=== PATIENT | male | born 1955 | race Caucasian/White ===

== ENCOUNTER 2016-07-07 15:12 | Inpatient (IN) ==
--- NOTE | 2016-07-07 16:53 | XRay Report ---
HISTORY: Reason for Exam:cough FINDINGS: There is small amount respiration motion artifact seen along the diaphragms. The lungs are clear and well expanded. The heart size, pulmonary vascular and pleura are normal. Postoperative changes are present following prior fusion in the upper thoracic spine. There has been no significant change since 06/15/16. IMPRESSION: Normal chest. Interpreted and Authenticated by: Andrew Good 07/07/16
[2016-07-07 17:09] LABS: Basophils # (Auto) 0 K/mcL (0.0-0.3); Basophils % (Auto) 0.2 % (0.0-2.0); Eosinophils # (Auto) 0.5 K/mcL (0.0-0.7); Eosinophils % (Auto) 3.9 % (0.0-7.0); Granulocytes % (Auto) 71.9 % (38.0-78.0); Lymphocytes # (Auto) 2.7 K/mcL (1.5-4.8); Lymphocytes % (Auto) 19.4 % (15.5-49.0); Mean Cell Volume 98.6 fL (80.0-100.0); Mean Corpuscular HGB Conc 32.8 g/dL (31.0-36.0); Mean Corpuscular Hemoglobin 32.3 pg (26.0-34.0); Monocytes # (Auto) 0.6 K/mcL (0.1-0.9); Monocytes % (Auto) 4.6 % (1.0-9.0); Platelet Count 475 K/mcL (140-440); Red Cell Distribution Width 15.4 % (11.5-14.5)
[2016-07-07 17:38] LABS: ALT/SGPT 26 U/l (0-40); Albumin 3.2 gm/dL (3.2-5.2); Albumin/Globulin Ratio 0.8 (1.0-2.3); Alkaline Phosphatase 116 U/L (39-117); Blood Urea Nitrogen 12 mg/dl (8-23)
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
[2016-07-07] MEDS ORDERED: MAGNESIUM HYDROXIDE 30 ML ORAL.SUSP PO PRN ×2 (19:25→20:25)
[2016-07-07] MEDS ORDERED: ONDANSETRON 4 MG/2 ML VIAL IV PRN (19:25)
[2016-07-07] MEDS ORDERED: ALBUTEROL SULFATE 2.5 MG/3 ML NEBULIZER NEB PRN ×2 (19:25→20:25)
[2016-07-07] MEDS ORDERED: IMIPENEM/CILASTATIN SODIUM 1,000 MG in 0.9 % SODIUM CHLORIDE 250 ML IV SCH (19:45)
[2016-07-07] MEDS ORDERED: VANCOMYCIN PER PHARMACY IV ONE ×2 (19:58→20:25)
[2016-07-07] MEDS ORDERED: DEXTROSE 50% 50 ML VIAL IV PRN ×2 (19:59→20:25)
[2016-07-07] MEDS ORDERED: WARFARIN 3 MG TABLET PO SCH (20:00)
[2016-07-07] MEDS ORDERED: FLUTICASONE/SALMETEROL 250/50 INHALER #14 INH SCH (20:00)
[2016-07-07] MEDS ORDERED: oxyCODONE HCL 5 MG TABLET PO PRN (20:15)
[2016-07-07] MEDS: INSULIN LISPRO 1 UNIT/0.01 ML UNIT SQ SCH (20:55)
[2016-07-07] MEDS ORDERED: oxyCODONE 20 MG TAB.ER.12H PO SCH (21:00)
[2016-07-07] MEDS ORDERED: GABAPENTIN 400 MG CAPSULE PO SCH (21:00)
[2016-07-07] MEDS ORDERED: IPRATROPIUM/ALBUTEROL 3 ML AMPUL.NEB NEB SCH (21:00)
[2016-07-07] MEDS ORDERED: INSULIN LISPRO 1 UNIT/0.01 ML UNIT SQ SCH (21:00)
[2016-07-07] MEDS: oxyCODONE 20 MG TAB.ER.12H PO SCH (21:04)
[2016-07-07] MEDS: GABAPENTIN 400 MG CAPSULE PO SCH (21:04)
[2016-07-07] MEDS: IPRATROPIUM/ALBUTEROL 3 ML AMPUL.NEB NEB SCH (21:13)
[2016-07-07] MEDS: oxyCODONE HCL 5 MG TABLET PO PRN (21:23)
[2016-07-07] MEDS: VANCOMYCIN 500 MG VIAL ONE ×2 (21:23→21:25)
[2016-07-07] MEDS: VANCOMYCIN 1,500 MG in 0.9 % SODIUM CHLORIDE 500 ML IV SCH (21:24)
[2016-07-07] MEDS ORDERED: 0.9 % SODIUM CHLORIDE 10 ML SYRINGE IV SCH (22:00)
[2016-07-07] MEDS ORDERED: IMIPENEM/CILASTATIN SODIUM 500 MG VIAL IV ONE (23:00)
[2016-07-07] MEDS: IMIPENEM/CILASTATIN SODIUM 1,000 MG in 0.9 % SODIUM CHLORIDE 250 ML IV SCH (23:29)
[2016-07-07] MEDS: 0.9 % SODIUM CHLORIDE 10 ML SYRINGE IV SCH (23:30)
[2016-07-08] MEDS: 0.9 % SODIUM CHLORIDE 10 ML SYRINGE IV SCH ×4 (05:21→21:08)
[2016-07-08 06:25] LABS: Mean Cell Volume 99.6 fL (80.0-100.0); Mean Corpuscular HGB Conc 32.5 g/dL (31.0-36.0); Mean Corpuscular Hemoglobin 32.4 pg (26.0-34.0); Platelet Count 436 K/mcL (140-440); RBC 4.19 M/mcL (4.50-5.90); Red Cell Distribution Width 15.2 % (11.5-14.5)
--- NOTE | 2016-07-08 07:19 | General Surgery Progress Note ---
Surgical - Auxillary Note - Subjective Patient Information: Note initiated : 07/08/16 at 7:18 am Service Date, if different from initiated Date: [] Patient: Jesus Amezquita 60 y/o M admitted on 07/07/16 for sacral wound. Chief Complaint: Patient without complaints this morning. Antibiotics started last night with imipenem and vancomycin to cover postitive wound culture from 06/15/16 growing multiple organisms. Vital Signs Temp Pulse Resp BP Pulse Ox 98.0 F 56 L 12 105/63 95 07/08/16 06:53 07/08/16 06:53 07/08/16 06:53 07/08/16 06:53 07/08/16 06:53 Period Temp Pulse Resp BP Sys/Graham Pulse Ox Last 24 Hr 97.2 F-98.1 F 50-60 12-20 90-144/51-77 94-98 Intake and Output 07/07/16 07/08/16 07/08/16 21:59 05:59 13:59 Intake Total 90 / 90 800 / 800 Output Total 750 / 750 Balance 90 / 90 50 / 50 Weight 250 lb 8 oz PE: General appearance: No distress. Alert and oriented and cooperative. CV: slightly irregular. : sacral wound without odor this morning. Unchanged since post debridement last night with mostly healthy appearing tissue in wound bed. Medially area of moncada coloring at site of use of silver nitrate stick last night. No fluctuance of surrounding tissues. CBC and Chem 7 07/08/16 05:19 A/P: Sacral pressure ulcer, Stage 3: recently worsening. S/P debridement of necrotic tissue last night. Dressing changes started this morning with silver alginate dressing to wound bed which will offer topical antimicrobial coverage and help manage drainage from the wound as reported by the patient's on admission. Will monitor wound for need for further debridement. Recommend holding coumadin in case deeper debridement is needed. Sacral Wound infection: On IV antibiotics for positive wound cultures from that were never treated.
[2016-07-08 07:20] LABS: ALT/SGPT 22 U/l (0-40); Albumin 2.9 gm/dL (3.2-5.2); Alkaline Phosphatase 96 U/L (39-117); Bilirubin,Direct < 0.2 mg/dL (0.0-0.3); Blood Urea Nitrogen 11 mg/dl (8-23); Gamma Glutamyl Transpeptidase 48 U/L (8-61); Magnesium 1.8 mg/dL (1.6-2.5); Phosphorous 2.9 mg/dL (2.7-4.5); Uric Acid 8.2 mg/dL (2.5-8.0)
[2016-07-08] MEDS: POTASSIUM CHLORIDE 20 MEQ TABLET PO SCH (07:24)
[2016-07-08] MEDS: AMIODARONE HCL 200 MG TABLET PO SCH (07:24)
[2016-07-08] MEDS: FUROSEMIDE 40 MG TABLET PO SCH ×2 (07:25→16:04)
[2016-07-08] MEDS: INSULIN LISPRO 1 UNIT/0.01 ML UNIT SQ SCH ×3 (07:29→17:16)
[2016-07-08] MEDS: IMIPENEM/CILASTATIN SODIUM 1,000 MG in 0.9 % SODIUM CHLORIDE 250 ML IV SCH ×3 (07:32→23:17)
[2016-07-08] MEDS ORDERED: POTASSIUM CHLORIDE 20 MEQ TABLET PO SCH (08:00)
[2016-07-08] MEDS ORDERED: FUROSEMIDE 40 MG TABLET PO SCH (08:00)
[2016-07-08] MEDS ORDERED: AMIODARONE HCL 200 MG TABLET PO SCH (08:00)
--- NOTE | 2016-07-08 08:18 | Consultation ---
DATE OF CONSULTATION: 07/07/2016 CHIEF COMPLAINT: Sacral pressure sore. HISTORY OF PRESENT ILLNESS: The patient is seen in consultation at the request of Dr. Morley in the emergency department for a sacral pressure sore. Dr. Morley contacted me stating that the patient was sent over by his wound care doctor, and was told to be admitted for colostomy. I had not received any phone calls regarding this plan for this patient. When patient reached the ER, I was consulted for surgical consult for consideration of colostomy. The patient is known to me from previous evaluation for sacral wound in Wound care. The patient reports that his wound has worsened over the past couple of months and that on a recent wound culture he was told that he had E. coli and was told by his wound care physician that he would no longer care for him if he did not get a colostomy to divert the fecal stream. Of note, the patient has not had any issue with management of his bowel movements in the past and denies any problems with diarrhea. The patient is a paraplegic and is cared for by his . When questioned about the current treatment she states that the current wound care involves use of bacitracin ointment and Xeroform gauze and presents orders that show that this is the dressing that is being done daily. She does report that there has been drainage from the wound. The patient denies fevers or chills. PAST MEDICAL HISTORY: 1. Significant for paraplegia. 2. History of splenectomy. 3. Restless leg syndrome. 4. BPH. 5. History of DVT on Coumadin therapy. 6. Type 2 diabetes. 7. Hypertension. 8. Hypercholesterolemia. 9. Paroxysmal atrial fibrillation. 9. History of cervical spine fracture. 10. Left renal cyst. 11. Sacral decubitus ulcer as per HPI. ALLERGIES: IODINE. MEDICATIONS: 1. Warfarin 3 mg. 2. Tolterodine extended release 4 mg daily. 3. Potassium chloride 20 mEq daily. 4. Oxycodone extended release 20 mg b.i.d. 5. Oxycodone 5 mg b.i.d. 2 pills q.4h. p.r.n. pain. 6. Ipratropium albuterol inhaled q.i.d. 7. Gabapentin 800 mg p.o. t.i.d. 8. Furosemide 40 mg b.i.d. 9. Diltiazem ER 120 mg daily. 10. Fluticasone 250 mcg/salmeterol 50 mcg 1 inhaled q.12h. 11. Atorvastatin 10 mg every day. 12. Amiodarone 200 mg every day. 13. Budesonide/Formoteral HFA 80 mcg/4.5 mcg 2 inhaled b.i.d. REVIEW OF SYSTEMS: CONSTITUTIONAL: The patient denies fevers or chills. PULMONARY: The patient reports recent feelings of shortness of breath. CARDIOVASCULAR: Denies chest pain or pressure. HEMATOLOGIC: Has history of DVT. On chronic anticoagulation with coumadin. PHYSICAL EXAMINATION: VITAL SIGNS: Temperature 97.2, pulse 55, respirations 16, blood pressure 144/68, O2 saturations 98% on room air. GENERAL: The patient is an obese man who appears his stated age of 60 in no acute distress. He is sitting in his motorized wheelchair. He is accompanied by his . NEUROLOGIC: The patient is alert and oriented to person, place and circumstance. He is appropriate in conversation. He is insensate below the chest. CARDIOVASCULAR: Regular rhythm, regular rate. CHEST: Breath sounds are clear bilaterally in the upper harding, diminished at the bases. No rales or wheezes heard. No use of accessory respiratory musculature. ABDOMEN: Obese, soft. There is a well-healed scar in the left subcostal position from previous splenectomy. No masses palpated, although this can be difficult to appreciate due to body habitus. : In the sacral region there is a pressure sore. It crosses midline with the greatest depth on the left side and area on the left where there is necrotic tissue present, which appears primarily to be skin and subcutaneous tissue. On the right side there is pressure injury noted to the skin with superficial loss of skin into dermis which still remains viable. There is no fluctuance of the surrounding tissues and no drainage on palpation of the surrounding tissues. There is a foul odor coming from the wound, presumably from the necrotic tissue that is present. There is no stool in the wound or the perianal region: good hygeine of the area noted. EXTREMITIES: Warm without edema. LABS AND STUDIES: CBC done in the emergency department shows an elevated white blood cell count of 13.8, granulocytes 71%. Hemoglobin 14.9, hematocrit 45.3 and platelets are 475. Serum chemistries show a sodium 141, potassium 3.4, chloride 99, CO2 29, BUN 12, creatinine 0.6, glucose 106, calcium 9, total bilirubin 0.3, AST 35, ALT 26, alkaline phosphatase 116. Total protein 7.2, albumin 3.2. ASSESSMENT AND PLAN: Sacral decubitus ulcer secondary to pressure. On evaluation of the wound, the patient clearly has necrotic tissue involving the skin and for full thickness skin on the left side of the midline with fat exposed. Review of his prior clinic records was performed confirming a recommendation by the wound care physician for colostomy and permanent urinary catheter placement with possible suprapubic catheter placement. The current wound necrosis when compared to notes and pictures that the patient 's presents from prior clinic visit was present at prior wound care visit. It seems some autodebridement has occurred as this area seems a bit smaller. Recommend treatment of the clearly necrotic tissue within the wound bed with debridement. This was discussed with the patient and after consent was obtained, was performed at the bedside under sterile technique. Wound cultures from the wound taken on 06/15 were reviewed. The patient and his report that he was not started on any antibiotics at that time in which he was told he had positive wound cultures and needed a colostomy. On review of these cultures the patient has grown out enterococcus, pseudomonas E. coli and staph. Unfortunately, sensitivities are such that resistances and sensitivities do not line up for these bacteria requiring at least 3 antibiotics or more if this is to be addressed on an oral standpoint. I have discussed this with the hospitalist and given the variation of antibiotics needed to achieve treatment with oral antibiotics versus the ability to treat all of these bacteria with one antibiotic it would make sense to proceed with treatment with monotherapy which will require IV treatment; which may also be more beneficial in the setting of a worsening wound. He does have an elevated white blood cell count which is also likely due to his wound. He will be admitted for IV antibiotic therapy. Wound dressing changes will be done by me in follow-up visits at which time further evaluation to see if any further deeper debridement is needed. I did discuss with patient and his , the general procedure of colostomy. It is not uncommon to consider this operation for wounds in the genital region that are regularly contaminated because of poor bowel control/ management. The patient, however, since I have known him has not had issues with poor management of his bowels and has always had good hygeine of this area. He does not have issues with chronic gross contamination of his wound with feces. Although colostomy is done to divert the fecal stream, if reasonable hygiene is maintained he may potentially still do okay without one and is giving this consideration. He has admitted at this visit that he is not eager to have a colostomy if he does not absolutely have to have one. Given his comorbid medical issues I would recommend a concerted effort at treating the recent worsening of his wound before moving to an operation for colostomy especially given that there has not been a history or finding on exam of poor hygeine in the area. Regarding the wound care physician's recommendation for permanent catheter placement, in talking with the patient he has only on occasion had urinary bladder in continence but is otherwise well managed by straight cathing every two hours at home. If there is concern for urinary contamination from this occasional incontinence then either condom catheterization or indwelling lamb catheter should be able to achieve the desired effect without a larger invasive procedure of suprapubic catheter placement. The case was discussed with Dr. Sanchez who is the hospitalist and will admit the patient and start with IV antibiotics. As stated above, I will follow along for monitoring and further care of the wound and to see if further deeper debridement is needed. RC:izabel Job ID: [id number] Doc ID: [id number] Shabana HANLEY
[2016-07-08 08:19] LABS: Eosinophils % (Manual) 6 % (0-7); Lymphocytes % 39 % (15-49); Monocytes % (Manual) 6 % (1-9); Platelet Estimate NORMAL (NORMAL); RBC Morphology NORMAL (NORMAL); Segmented Neutrophils % 49 % (38-78)
--- NOTE | 2016-07-08 08:45 | Operative Note ---
DATE OF OPERATION: 07/07/2016 PREOPERATIVE DIAGNOSIS: Sacral pressure sore with necrotic tissue. POSTOPERATIVE DIAGNOSIS: Sacral pressure sore, stage 3, with necrotic tissue. PROCEDURE PERFORMED: Debridement of necrotic tissue from sacral pressure sore, full thickness. SURGEON: Shabana Rodriguez MD ANESTHETIC: None. INDICATIONS FOR PROCEDURE: The patient is a 60-year-old man who is a paraplegic, who has a sacral pressure sore that has worsened over the past few weeks. The patient presented to the emergency department with findings of an area of frankly necrotic tissue on his wound which on evaluation photos taken in his clinic visits has been present for some time. He has a foul odor coming from this area. The patient is not frankly septic from this wound, but clearly has an infection and necrotic tissue needs debridement. Since the patient is insensate and the tissue that was clearly nonviable appears limited to dermis and subcutaneous tissue this was debrided at the bedside under sterile. DESCRIPTION OF PROCEDURE: After obtaining informed consent, the wound in the skin surrounding it was prepped with Hibiclens. Next, using forceps and scissors with intermittent use of scalpel, and area of necrotic full thickness dermis along with a thin layer of underlying subcutaneous tissue was debrided down to the point of where blood flow could be seen coming from the small vessels within the subcutaneous fat. At this point, pressure was applied for control of bleeding. A small piece of the debrided deeper fatty tissue was sent for wound culture. There were three areas where the small vessel bleeding was not controlled with just pressure and this was treated with silver nitrate stick which controlled the bleeding. The wound was then cleansed with Voshe wash and then dressed with a gauze moistened with the Voshe cleansing solution. This was covered by an ABD pad and held in place with Medipore tape. The patient tolerated the procedure well and there were no immediate complications. Wound dimensions of full thickness part of wound post debridement are 5X5.5 cm. The patient is to be admitted to the hospital for IV antibiotics for multiorganism growth from prior wound cultures and will be followed along by me for further dressing changes and evaluation for need any further deeper debridement. RC:izabel Job ID: [id number] Doc ID: [id number] Shabana Rodriguez MD [facility]
[2016-07-08] MEDS: VITAMIN D3 1,000 UNIT TABLET PO SCH (08:51)
[2016-07-08] MEDS: TOLTERODINE 2 MG CAP.XL.24H PO SCH (08:52)
[2016-07-08] MEDS: ATORVASTATIN 20 MG TABLET PO SCH (08:53)
[2016-07-08] MEDS: DILTIAZEM 120 MG CAP.XL.24H PO SCH (08:53)
[2016-07-08] MEDS: oxyCODONE 20 MG TAB.ER.12H PO SCH ×2 (08:56→21:08)
[2016-07-08] MEDS ORDERED: DILTIAZEM 120 MG CAP.XL.24H PO SCH (09:00)
[2016-07-08] MEDS ORDERED: ATORVASTATIN 20 MG TABLET PO SCH (09:00)
[2016-07-08] MEDS ORDERED: VITAMIN D3 1,000 UNIT TABLET PO SCH (09:00)
[2016-07-08] MEDS ORDERED: FLU VACC QS2016-17 36MOS UP/PF 60 MCG/0.5 ML SYRINGE IM ONE (09:00)
[2016-07-08] MEDS ORDERED: TOLTERODINE 2 MG CAP.XL.24H PO SCH (09:00)
[2016-07-08] MEDS: GABAPENTIN 400 MG CAPSULE PO SCH ×3 (09:02→21:09)
[2016-07-08] MEDS: VANCOMYCIN 1,500 MG in 0.9 % SODIUM CHLORIDE 500 ML IV SCH ×2 (09:02→21:09)
[2016-07-08] MEDS: FLUTICASONE/SALMETEROL 250/50 INHALER #14 INH SCH ×2 (09:10→22:34)
[2016-07-08] MEDS: IPRATROPIUM/ALBUTEROL 3 ML AMPUL.NEB NEB SCH ×4 (09:13→22:34)
[2016-07-08] MEDS: oxyCODONE HCL 5 MG TABLET PO PRN ×2 (12:44→18:29)
[2016-07-08] MEDS ORDERED: WARFARIN 3 MG TABLET PO SCH (14:00)
[2016-07-08] MEDS: ONDANSETRON 4 MG/2 ML VIAL IV PRN (16:16)
--- NOTE | 2016-07-08 20:29 | Internal Med Progress Note ---
Medical - PN: Subj Patient information: Note initiated : 07/08/16 at 8:27 pm Service Date, if different from initiated Date: [] Patient: Jesus Amezquita 60 y/o M admitted on 07/07/16 for Sacral Decubitus Ulcer /Infected Wound. Chief Complaint: [] Interval history: Patient seen examined, late in the day no acute overnight events, no new complaints patients plan of care reviwed with Surgery, no plans for colostomy at this time , plan for IV antibiotics adn monitoring the wound. Anticoagulation held for now, in light of need for further debridement. patient denies cp, sob, cough, wheezing, headache or dizziness. no abdominal pain, nausea or vomiting, tolerating po ok. - Constitutional Vitals: Vital Signs Temp Pulse Resp BP Pulse Ox 97.9 F 57 L 12 97/60 95 07/08/16 19:40 07/08/16 19:40 07/08/16 19:40 07/08/16 19:40 07/08/16 19:40 Period Temp Pulse Resp BP Sys/Graham Pulse Ox Last 24 Hr 97.4 F-98.1 F 54-65 11-20 90-110/51-64 94-96 Intake and Output 07/08/16 07/08/16 07/08/16 05:59 13:59 21:59 Intake Total 1550 / 1550 590 / 590 1290 / 1290 Output Total 750 / 750 1650 / 1650 Balance 800 / 800 590 / 590 -360 / -360 Weight 250 lb 8 oz Patient Weight 07/09/16 05:59 Weight 250 lb 8 oz Intake & Output: Intake & Output 07/08/16 07/08/16 07/08/16 05:59 13:59 21:59 Intake Total 1550 / 1550 590 / 590 1290 / 1290 Output Total 750 / 750 1650 / 1650 Balance 800 / 800 590 / 590 -360 / -360 Weight 250 lb 8 oz Intake: IV 750 / 750 250 / 250 250 / 250 Sodium Chloride 0.9% 250 250 / 250 250 / 250 250 / 250 ml @ 250 mls/hr IV Q8H JUAQUIN with Primaxin 1,000 mg Rx#:[id number] Sodium Chloride 0.9% 500 500 / 500 ml @ 333.3 mls/hr IV Q12H JUAQUIN with Vancomycin 1, 500 mg Rx#:[id number] Oral 800 / 800 340 / 340 1040 / 1040 Output: Urine Catheter Amount 750 / 750 1650 / 1650 Other: Meal Lunch Dinner Percent of Meal Consumed 100% 100% General appearance: morbidly obese, no acute distress - Respiratory Respiratory exam: Present: normal respiratory exam. Absent: respiratory distress, rhonchi, stridor, wheezes - Cardiovascular Cardiovascular exam: Present: +S1, +S2 - GI/Abdominal GI/Abdominal exam: Present: normal bowel sounds, soft. Absent: guarding, rigid , tenderness - Neurological Exam Neurological exam: Present: alert, oriented X3 Additional comments: paraplegic. - Psychiatric Psychiatric exam: Present: normal affect, normal mood Medical - PN: Obj Da - Labs CBC & Chem 7: 07/08/16 05:19 07/08/16 05:19 Labs: Abnormal Lab Results 07/08/16 07/08/16 07/08/16 05:19 05:19 05:19 WBC 14.9 H RBC 4.19 L RDW 15.2 H PT 26.3 H INR 2.3 H Uric Acid 8.2 H Total Protein 5.7 L Albumin 2.9 L Triglycerides 166 H Meds: Medications Albuterol Sulfate (Ventolin) 2.5 mg NEB Q2HP PRN PRN Reason: Shortness Of Breath Albuterol/Ipratropium (Duoneb) 3 ml NEB QID [facility] Last Admin: 07/08/16 16:52 Dose: Not Given Amiodarone HCl (Cordarone) 200 mg PO [facility] Last Admin: 07/08/16 07:24 Dose: 200 mg Atorvastatin Calcium (Lipitor) 10 mg PO DAILY [facility] Last Admin: 07/08/16 08:53 Dose: 10 mg Dextrose (Dextrose 50%) 0 ml IV UD PRN PRN Reason: Hypoglycemia Diltiazem HCl (Cardizem Cd) 120 mg PO DAILY [facility] Last Admin: 07/08/16 08:53 Dose: 120 mg Furosemide (Lasix) 40 mg PO BIDD [facility] Last Admin: 07/08/16 16:04 Dose: 40 mg Gabapentin (Neurontin) 800 mg PO TID [facility] Last Admin: 07/08/16 16:04 Dose: 800 mg Vancomycin HCl 1,500 mg/ (Sodium Chloride) 500 mls @ 333.3 mls/hr IV Q12H [facility] Last Admin: 07/08/16 09:02 Dose: 333.3 mls/hr Imipenem/Cilastatin Sodium 1, (000 mg/ Sodium Chloride) 250 mls @ 250 mls/hr IV Q8H [facility] Last Infusion: 07/08/16 17:16 Dose: Infused Magnesium Hydroxide (Milk Of Magnesia) 30 ml PO DAILYP PRN PRN Reason: Constipation Ondansetron HCl (Zofran) 4 mg IV Q6HP PRN PRN Reason: Nausea And Vomiting Last Admin: 07/08/16 16:16 Dose: 4 mg Oxycodone HCl (Oxycontin) 20 mg PO BID [facility] Last Admin: 07/08/16 08:56 Dose: 20 mg Oxycodone HCl (Roxicodone) 5 mg PO Q4HP PRN PRN Reason: Pain Last Admin: 07/08/16 18:29 Dose: 5 mg Potassium Chloride (Kdur) 20 meq PO [facility] Last Admin: 07/08/16 07:24 Dose: 20 meq Fluticasone/Salmeterol (Advair 250-50 Diskus) 1 puff INH Q12 [facility] Last Admin: 07/08/16 09:10 Dose: Not Given Sodium Chloride (Saline Flush) 10 ml IV Q8 [facility] Last Admin: 07/08/16 16:04 Dose: 10 ml Tolterodine Tartrate (Detrol La) 4 mg PO DAILY [facility] Last Admin: 07/08/16 08:52 Dose: 4 mg Vitamin D (Vitamin D3) 4,000 unit PO DAILY [facility] Last Admin: 07/08/16 08:51 Dose: 4,000 unit Medical - PN: A/P - Time Spent With Patient Total time spent is greater than 50% in coordination of care (as documented) at patient's floor/unit and/or counseling patient: (1) Infected wound Status: Acute Assessment and plan: WBC worse today than before. likely reactive for debridement Continue with IV antibitocs vanco and imipenum await cultures. Current Visit: Yes (2) Bradycardia Status: Acute Assessment and plan: stable, asymptomatic, tsh neg, due to medications amiodarone, cardizem Current Visit: Yes (3) Sacral decubitus ulcer Status: Acute Assessment and plan: managemetn as per surgery. Current Visit: Yes (4) Anticoagulated on Coumadin Status: Chronic Assessment and plan: hold coumadin for now, consider lovenox if INR < 2.0 coumadin held in light of need for further debridement. Current Visit: No (5) COPD (chronic obstructive pulmonary disease) Status: Chronic Current Visit: No (6) Diabetes type 2, controlled Status: Chronic Assessment and plan: glucose well controlled no need for insulin d/c accuhecks for now. Current Visit: No (7) Hypertension Status: Chronic Assessment and plan: well controlled. Current Visit: No (8) Paroxysmal a-fib Status: Chronic Assessment and plan: stable HR, asymptomatic, Current Visit: No Medical - PN: Qual - VTE Deep Vein Thrombosis/Pulmonary Embolism Present on Admission: No
[2016-07-09] MEDS: oxyCODONE HCL 5 MG TABLET PO PRN ×2 (03:08→15:41)
[2016-07-09] MEDS: 0.9 % SODIUM CHLORIDE 10 ML SYRINGE IV SCH ×3 (05:41→22:40)
[2016-07-09] MEDS: IMIPENEM/CILASTATIN SODIUM 1,000 MG in 0.9 % SODIUM CHLORIDE 250 ML IV SCH ×3 (07:29→21:53)
[2016-07-09 07:41] LABS: Basophils # (Auto) 0.1 K/mcL (0.0-0.3); Basophils % (Auto) 0.6 % (0.0-2.0); Eosinophils # (Auto) 0.7 K/mcL (0.0-0.7); Eosinophils % (Auto) 4.5 % (0.0-7.0); Granulocytes % (Auto) 75.1 % (38.0-78.0); Lymphocytes # (Auto) 2.1 K/mcL (1.5-4.8); Lymphocytes % (Auto) 14.2 % (15.5-49.0); Mean Cell Volume 99.5 fL (80.0-100.0); Mean Corpuscular Hemoglobin 31.8 pg (26.0-34.0); Monocytes # (Auto) 0.8 K/mcL (0.1-0.9); Monocytes % (Auto) 5.6 % (1.0-9.0); Platelet Count 450 K/mcL (140-440); RBC 4.41 M/mcL (4.50-5.90); Red Cell Distribution Width 15.1 % (11.5-14.5)
[2016-07-09] MEDS: IPRATROPIUM/ALBUTEROL 3 ML AMPUL.NEB NEB SCH ×4 (08:40→21:51)
[2016-07-09 08:56] LABS: ALT/SGPT 29 U/l (0-40); Albumin/Globulin Ratio 0.9 (1.0-2.3); Alkaline Phosphatase 95 U/L (39-117); Bilirubin,Direct < 0.2 mg/dL (0.0-0.3); Blood Urea Nitrogen 8 mg/dl (8-23); Gamma Glutamyl Transpeptidase 51 U/L (8-61); Magnesium 1.8 mg/dL (1.6-2.5); Phosphorous 2.5 mg/dL (2.7-4.5)
[2016-07-09] MEDS ORDERED: POTASSIUM CHLORIDE 20 MEQ in DEXTROSE 5% IN WATER 250 ML IV ONE (08:56)
--- NOTE | 2016-07-09 08:56 | General Surgery Progress Note ---
Surgical - Auxillary Note - Subjective Patient Information: Note initiated : 07/09/16 at 8:48 am Service Date, if different from initiated Date: [] Patient: Jesus Amezquita 60 y/o M admitted on 07/07/16 for Sacral Decubitus Ulcer /Infected Wound. Chief Complaint: Patient reports no issues overnight. Feels about the same. Ordered clinitron bed yesterday and it should arrive today. Vital Signs Temp Pulse Resp BP Pulse Ox 98.1 F 60 10 L 111/71 95 07/09/16 07:02 07/09/16 08:41 07/09/16 08:41 07/09/16 07:02 07/09/16 08:43 Period Temp Pulse Resp BP Sys/Graham Pulse Ox Last 24 Hr 97.7 F-98.2 F 55-65 10-20 97-111/56-71 94-96 Intake and Output 07/08/16 07/09/16 07/09/16 21:59 05:59 13:59 Intake Total 1290 / 1290 450 / 450 Output Total 1650 / 1650 1850 / 1850 Balance -360 / -360 -1400 / -1400 Weight 251 lb PE: No distress Chest clear bilaterally CV: irregular rhythm, normal rate : sacral pressure wound with moncada discoloration on medial aspect concerning for non viable tissue (seems deeper than surface stain of silver nitrate from two days ago) No fluctuance but heavy drainage on the dressing. CBC and Chem 7 07/09/16 05:30 A/P: Sacral pressure sore: Wound mostly clean but medial area concerning for non viable tissue & WBCs rising. Recommend deeper debridement in OR. Risks and benefits of procedure discussed with patient and his . Case discussed with anesthesia and Hospitalist. Will proceed to OR for further debridement of sacral wound today.
[2016-07-09] MEDS: AMIODARONE HCL 200 MG TABLET PO SCH (09:47)
[2016-07-09] MEDS: DILTIAZEM 120 MG CAP.XL.24H PO SCH (09:47)
[2016-07-09] MEDS: FUROSEMIDE 40 MG TABLET PO SCH ×2 (09:49→15:26)
[2016-07-09] MEDS: POTASSIUM CHLORIDE 20 MEQ TABLET PO SCH (09:49)
[2016-07-09] MEDS: TOLTERODINE 2 MG CAP.XL.24H PO SCH (09:50)
[2016-07-09] MEDS: ATORVASTATIN 20 MG TABLET PO SCH (09:56)
[2016-07-09] MEDS: oxyCODONE 20 MG TAB.ER.12H PO SCH ×2 (09:56→20:39)
[2016-07-09] MEDS: GABAPENTIN 400 MG CAPSULE PO SCH ×3 (09:56→20:39)
[2016-07-09] MEDS: VITAMIN D3 1,000 UNIT TABLET PO SCH (09:56)
[2016-07-09] MEDS: VANCOMYCIN 1,500 MG in 0.9 % SODIUM CHLORIDE 500 ML IV SCH (09:57)
[2016-07-09] MEDS ORDERED: POTASSIUM CHLORIDE 20 MEQ PACKET PO ONE ×3 (10:18→21:00)
[2016-07-09] MEDS: FLUTICASONE/SALMETEROL 250/50 INHALER #14 INH SCH (11:30)
[2016-07-09] MEDS ORDERED: WARFARIN 3 MG TABLET PO SCH (14:00)
[2016-07-09] MEDS ORDERED: WARFARIN 3 MG TABLET PO ONE (14:00)
--- NOTE | 2016-07-09 14:22 | General Surgery Progress Note ---
Surgical - Auxillary Note - Subjective Patient Information: Note initiated : 07/09/16 at 2:20 pm Service Date, if different from initiated Date: [] Patient: Jesus Amezquita 60 y/o M admitted on 07/07/16 for Sacral Decubitus Ulcer /Infected Wound. Chief Complaint: Surgery for debridement postponed until tomorrow morning. Patient's Potassium level was low this morning and supplementation given but remains low on follow up labs. Will continue with supplementation for today and if levels improved proceed to OR in the morning. This was discussed with Anesthesia, hospitalist and patient and his .
--- NOTE | 2016-07-09 14:59 | Internal Med Progress Note ---
Medical - PN: Subj Patient information: Note initiated : 07/09/16 at 2:57 pm Service Date, if different from initiated Date: [] Patient: Jesus Amezquita 60 y/o M admitted on 07/07/16 for Sacral Decubitus Ulcer /Infected Wound. Chief Complaint: [] Interval history: The patient was seen examined this AM, present in the room with the patient. patient labs showed low K at 2.8, initial plan to take the patient to OR for further debridement, however patients K did not improve despite IV KCL, therefore debridement procedure was postponed till tomorrow The patient othewise has no complaints, he was lying comfortably in bed, denies any pain, tolerating po well. He has no chest pain, no shortness of breath, no abdominal pain, no nausea or vomiting. - Constitutional Vitals: Vital Signs Temp Pulse Resp BP Pulse Ox 97.3 F L 54 L 12 125/70 95 07/09/16 11:02 07/09/16 13:30 07/09/16 13:30 07/09/16 11:02 07/09/16 11:02 Period Temp Pulse Resp BP Sys/Graham Pulse Ox Last 24 Hr 97.3 F-98.2 F 54-65 10-18 97-125/56-71 94-96 Intake and Output 07/09/16 07/09/16 07/09/16 05:59 13:59 21:59 Intake Total 450 / 450 Output Total 1850 / 1850 Balance -1400 / -1400 Intake & Output: Intake & Output 07/09/16 07/09/16 07/09/16 05:59 13:59 21:59 Intake Total 450 / 450 Output Total 1850 / 1850 Balance -1400 / -1400 Intake: IV 250 / 250 Sodium Chloride 0.9% 250 250 / 250 ml @ 250 mls/hr IV Q8H JUAQUIN with Primaxin 1,000 mg Rx#:[id number] Oral 200 / 200 Output: Urine Catheter Amount 1850 / 1850 - Head Head exam: Present: atraumatic, normal inspection - Respiratory Respiratory exam: Present: normal respiratory exam. Absent: rhonchi, stridor, wheezes - Cardiovascular Cardiovascular exam: Present: normal rate and rhythm, +S1, +S2 - GI/Abdominal GI/Abdominal exam: Present: normal bowel sounds, soft. Absent: guarding, hernia , rigid - Neurological Exam Neurological exam: Present: alert, CN II-XII intact, oriented X3 - Psychiatric Psychiatric exam: Present: normal affect, normal mood Medical - PN: Obj Da - Labs CBC & Chem 7: 07/09/16 05:30 07/09/16 05:30 Labs: Abnormal Lab Results 07/09/16 07/09/16 07/09/16 12:38 07:59 05:30 WBC RBC RDW Plt Count Lymph % (Auto) Gran # PT INR POC Potassium 2.9 L* Potassium 2.8 L* POC BUN 6 L Creatinine 0.5 L POC Creatinine 0.5 L Glucose 106 H POC Glucose 114 H Uric Acid POC WB Ioniz Calcium 1.07 L Phosphorus 2.5 L AST 53 H Total Protein Albumin 3.0 L Albumin/Globulin Ratio 0.9 L Triglycerides Vancomycin Trough 29.2 H* 07/09/16 07/09/16 07/08/16 05:30 05:30 20:35 WBC 15.0 H RBC 4.41 L RDW 15.1 H Plt Count 450 H Lymph % (Auto) 14.2 L Gran # 11.2 H PT 21.6 H 22.9 H INR 1.8 H 2.0 H POC Potassium Potassium POC BUN Creatinine POC Creatinine Glucose POC Glucose Uric Acid POC WB Ioniz Calcium Phosphorus AST Total Protein Albumin Albumin/Globulin Ratio Triglycerides Vancomycin Trough 07/08/16 07/08/16 07/08/16 05:19 05:19 05:19 WBC 14.9 H RBC 4.19 L RDW 15.2 H Plt Count Lymph % (Auto) Gran # PT 26.3 H INR 2.3 H POC Potassium Potassium POC BUN Creatinine POC Creatinine Glucose POC Glucose Uric Acid 8.2 H POC WB Ioniz Calcium Phosphorus AST Total Protein 5.7 L Albumin 2.9 L Albumin/Globulin Ratio Triglycerides 166 H Vancomycin Trough Meds: Medications Albuterol Sulfate (Ventolin) 2.5 mg NEB Q2HP PRN PRN Reason: Shortness Of Breath Albuterol/Ipratropium (Duoneb) 3 ml NEB QID [facility] Last Admin: 07/09/16 13:25 Dose: 3 ml Amiodarone HCl (Cordarone) [facility] Last Admin: 07/09/16 09:47 Dose: 200 mg Atorvastatin Calcium (Lipitor) 10 mg PO DAILY [facility] Last Admin: 07/09/16 09:56 Dose: Not Given Dextrose (Dextrose 50%) 0 ml IV UD PRN PRN Reason: Hypoglycemia Diltiazem HCl (Cardizem Cd) 120 mg PO DAILY [facility] Last Admin: 07/09/16 09:47 Dose: 120 mg Furosemide (Lasix) 40 mg PO BIDD [facility] Last Admin: 07/09/16 09:49 Dose: Not Given Gabapentin (Neurontin) 800 mg PO TID [facility] Last Admin: 07/09/16 14:55 Dose: 800 mg Imipenem/Cilastatin Sodium 1, (000 mg/ Sodium Chloride) 250 mls @ 250 mls/hr IV Q8H [facility] Last Admin: 07/09/16 07:29 Dose: 250 mls/hr Magnesium Hydroxide (Milk Of Magnesia) 30 ml PO DAILYP PRN PRN Reason: Constipation Ondansetron HCl (Zofran) 4 mg IV Q6HP PRN PRN Reason: Nausea And Vomiting Last Admin: 07/08/16 16:16 Dose: 4 mg Oxycodone HCl (Oxycontin) 20 mg PO BID [facility] Last Admin: 07/09/16 09:56 Dose: Not Given Oxycodone HCl (Roxicodone) 5 mg PO Q4HP PRN PRN Reason: Pain Last Admin: 07/09/16 03:08 Dose: 5 mg Budesonide/Formoterol ( Symbicort) 80/4.5 Mcg Inhaler 2 dose INH BID [facility] Potassium Chloride (Kdur) 20 meq PO QAMCC [facility] Last Admin: 07/09/16 09:49 Dose: Not Given Potassium Chloride (Klor-Con) 40 meq PO ONCE ONE Stop: 07/09/16 18:01 Potassium Chloride (Klor-Con) 40 meq PO ONCE ONE Stop: 07/09/16 21:01 Sodium Chloride (Saline Flush) 10 ml IV Q8 [facility] Last Admin: 07/09/16 14:55 Dose: 10 ml Tolterodine Tartrate (Detrol La) 4 mg PO DAILY [facility] Last Admin: 07/09/16 09:50 Dose: Not Given Vitamin D (Vitamin D3) 4,000 unit PO DAILY [facility] Last Admin: 07/09/16 09:56 Dose: Not Given Medical - PN: A/P - Time Spent With Patient Total time spent is greater than 50% in coordination of care (as documented) at patient's floor/unit and/or counseling patient: (1) Infected wound Status: Acute Assessment and plan: WBC upto 15. likely from infected wound Patient has no cough, X ray chest on admission has been clean if continues to worsen, will relook at X ray chest, get blood cultures and get UA tomorrow. Continue with IV antibitocs vanco and imipenum Current Visit: Yes (2) Bradycardia Status: Acute Assessment and plan: stable, asymptomatic, tsh neg, due to medications amiodarone, cardizem Current Visit: Yes (3) Sacral decubitus ulcer Status: Acute Assessment and plan: management as per surgery Plan for debridement in OR tomorrow new mattress for pt today consideration for LTAC placement for wound care management. . Current Visit: Yes (4) Anticoagulated on Coumadin Status: Chronic Assessment and plan: hold coumadin for now, INR was 1.8 on coumadin due to afib, DVT in past he is paraplegic hence high risk of DVT, but INR is near therapeutic, he is due for debridement tomorrow early AM Plan to resume coumadin and lovenox as soon as patient is safe from surgical stand point. Current Visit: No (5) COPD (chronic obstructive pulmonary disease) Status: Chronic Assessment and plan: on home meds symbicort, continue same prn albuterol Current Visit: No (6) Diabetes type 2, controlled Status: Chronic Assessment and plan: glucose well controlled no need for insulin d/c accuhecks for now. Current Visit: No (7) Hypertension Status: Chronic Assessment and plan: well controlled. Current Visit: No (8) Paroxysmal a-fib Status: Chronic Assessment and plan: stable HR, asymptomatic, Current Visit: No Medical - PN: Qual - VTE Deep Vein Thrombosis/Pulmonary Embolism Present on Admission: No
[2016-07-09] MEDS: BUDESONIDE INH SCH (21:00)
[2016-07-09] MEDS: FORMOTEROL INH SCH (21:00)
[2016-07-09] MEDS: ONDANSETRON 4 MG/2 ML VIAL IV PRN (22:25)
[2016-07-09] MEDS ORDERED: LORazepam 2 MG/ML VIAL IV ONE (23:42)
[2016-07-09] MEDS ORDERED: LORazepam 2 MG/ML VIAL ONE (23:57)
[2016-07-10 05:57] LABS: Basophils # (Auto) 0.1 K/mcL (0.0-0.3); Basophils % (Auto) 0.8 % (0.0-2.0); Eosinophils # (Auto) 0.5 K/mcL (0.0-0.7); Eosinophils % (Auto) 2.8 % (0.0-7.0); Granulocytes % (Auto) 69.9 % (38.0-78.0); Lymphocytes # (Auto) 3.7 K/mcL (1.5-4.8); Lymphocytes % (Auto) 20.5 % (15.5-49.0); Monocytes # (Auto) 1.1 K/mcL (0.1-0.9); Platelet Count 439 K/mcL (140-440); RBC 4.42 M/mcL (4.50-5.90); Red Cell Distribution Width 14.7 % (11.5-14.5)
[2016-07-10] MEDS: IMIPENEM/CILASTATIN SODIUM 1,000 MG in 0.9 % SODIUM CHLORIDE 250 ML IV SCH ×3 (06:01→21:13)
[2016-07-10] MEDS: ONDANSETRON 4 MG/2 ML VIAL IV PRN ×2 (06:01→21:23)
[2016-07-10] MEDS: 0.9 % SODIUM CHLORIDE 10 ML SYRINGE IV SCH ×3 (06:03→23:07)
[2016-07-10 06:11] LABS: ALT/SGPT 24 U/l (0-40); Albumin/Globulin Ratio 0.9 (1.0-2.3); Alkaline Phosphatase 93 U/L (39-117); Bilirubin,Direct < 0.2 mg/dL (0.0-0.3); Blood Urea Nitrogen 8 mg/dl (8-23); Gamma Glutamyl Transpeptidase 53 U/L (8-61); Magnesium 1.8 mg/dL (1.6-2.5); Phosphorous 2.2 mg/dL (2.7-4.5); Uric Acid 7.2 mg/dL (2.5-8.0)
[2016-07-10] MEDS: POTASSIUM CHLORIDE 20 MEQ TABLET PO SCH (07:00)
[2016-07-10] MEDS ORDERED: IPRATROPIUM/ALBUTEROL 3 ML AMPUL.NEB NEB ONE (07:05)
[2016-07-10] MEDS ORDERED: MIDAZOLAM 5 MG/5 ML VIAL ONE (07:30)
[2016-07-10] MEDS ORDERED: MEPERIDINE 25 MG/ML SYRINGE IV PRN (07:40)
[2016-07-10] MEDS ORDERED: ATROPINE SULFATE 0.4 MG/ML VIAL IV PRN (07:40)
[2016-07-10] MEDS ORDERED: PROMETHAZINE 25 MG/ML VIAL IV PRN (07:40)
[2016-07-10] MEDS ORDERED: NALOXONE HCL 0.4 MG/ML VIAL IV PRN (07:40)
[2016-07-10] MEDS ORDERED: METOCLOPRAMIDE 10 MG/2 ML VIAL IV PRN (07:40)
[2016-07-10] MEDS ORDERED: ONDANSETRON 4 MG/2 ML VIAL IV PRN (07:40)
[2016-07-10] MEDS ORDERED: LACTATED RINGERS 250 ML IV PRN (07:40)
[2016-07-10] MEDS ORDERED: fentaNYL 100 MCG/2 ML VIAL IV PRN (07:40)
[2016-07-10] MEDS ORDERED: diphenhydrAMINE 50 MG/ML VIAL IV PRN (07:40)
[2016-07-10] MEDS ORDERED: FLUMAZENIL 0.1 MG/ML ML IV PRN (07:40)
[2016-07-10] MEDS ORDERED: IPRATROPIUM/ALBUTEROL 3 ML AMPUL.NEB NEB PRN (07:40)
[2016-07-10] MEDS ORDERED: LACTATED RINGERS 1,000 ML IV SCH (07:45)
[2016-07-10] MEDS: VITAMIN D3 1,000 UNIT TABLET PO SCH (08:00)
[2016-07-10] MEDS: AMIODARONE HCL 200 MG TABLET PO SCH ×2 (08:00→12:22)
[2016-07-10] MEDS: FUROSEMIDE 40 MG TABLET PO SCH ×2 (08:00→17:23)
[2016-07-10] MEDS: GABAPENTIN 400 MG CAPSULE PO SCH ×3 (08:00→20:16)
[2016-07-10] MEDS: FORMOTEROL INH SCH ×2 (08:00→23:06)
[2016-07-10] MEDS: TOLTERODINE 2 MG CAP.XL.24H PO SCH (08:00)
[2016-07-10] MEDS: BUDESONIDE INH SCH ×2 (08:00→23:06)
[2016-07-10] MEDS: ATORVASTATIN 20 MG TABLET PO SCH (08:00)
[2016-07-10] MEDS: oxyCODONE 20 MG TAB.ER.12H PO SCH ×2 (08:00→20:17)
[2016-07-10] MEDS ORDERED: ROPIVACAINE HCL/PF 30 ML VIAL IJ ONE ×2 (08:10→09:52)
--- NOTE | 2016-07-10 08:12 | Brief Operative Note ---
Date of procedure: 07/10/16 Pre-op diagnosis: Sacral decubitus pressure sore, stage 3 Post-op diagnosis: other (Sacral decubitus pressure sore, stage 4) Procedure: Debridement of sacral pressure sore Anesthesia: MAC Findings: necrotic tissue down to level of connective tissue overlying coccyx Complications: none Surgeon: Shabana Rodriguez Estimated blood loss (cc): 10 Specimens Removed/Pathology: other (wound/ulcer bed tissue) Condition: stable Disposition: PACU
[2016-07-10] MEDS ORDERED: LIDOCAINE 1% 20 ML VIAL SQ ONE (08:54)
[2016-07-10] MEDS ORDERED: BACITRACIN 50,000 UNIT VIAL IR ONE (08:57)
[2016-07-10] MEDS ORDERED: VANCOMYCIN 1,000 MG in 0.9 % SODIUM CHLORIDE 250 ML IV ONE ×2 (09:00→10:00)
[2016-07-10] MEDS: IPRATROPIUM/ALBUTEROL 3 ML AMPUL.NEB NEB SCH ×4 (09:13→20:35)
[2016-07-10] MEDS ORDERED: MAGNESIUM HYDROXIDE 30 ML ORAL.SUSP PO PRN (09:52)
[2016-07-10] MEDS ORDERED: ALBUTEROL SULFATE 2.5 MG/3 ML NEBULIZER NEB PRN (09:52)
[2016-07-10] MEDS ORDERED: DEXTROSE 50% 50 ML VIAL IV PRN (09:52)
[2016-07-10] MEDS ORDERED: POTASSIUM CHLORIDE 20 MEQ PACKET PO ONE (10:00)
[2016-07-10] MEDS: NEUTRA PHOS 1 PACKET PO SCH ×2 (10:34→20:16)
[2016-07-10] MEDS: oxyCODONE HCL 5 MG TABLET PO PRN ×2 (10:35→17:16)
[2016-07-10] MEDS: DILTIAZEM 120 MG CAP.XL.24H PO SCH ×2 (11:14→12:22)
--- NOTE | 2016-07-10 11:31 | Operative Note ---
DATE OF OPERATION: 07/10/2016 PREOPERATIVE DIAGNOSIS: Stage III sacral pressure ulcer with necrotic tissue present. POSTOPERATIVE DIAGNOSIS: Stage IV sacral pressure ulcer. PROCEDURE PERFORMED: Debridement of sacral pressure ulcer. SURGEON: Shabana Rodriguez M.D. ANESTHETIC: MAC. ESTIMATED BLOOD LOSS: 10 mL. SPECIMEN: Ulcer base. COMPLICATOINS: None. INDICATIONS FOR PROCEDURE: The patient is a 60-year-old man admitted to the hospital on 07/07 with finding of a worsening sacral pressure ulcer which on initial admission was able to be debrided at the bedside. He was admitted for IV antibiotics and treatment of wound infection. During these past couple of days, a repeat evaluation of the wound shows the medial aspect has not shown improvement and has developed an area of nonviable tissue for which further debridement is recommended. Given that this requires a deeper debridement, the patient was taken to the operating room for access to appropriate instruments and a more sterile field for this deeper debridement. DESCRIPTION OF PROCEDURE: After obtaining consent, the patient was taken to the operating room and a time-out was taken to confirm that he was here for the above-stated procedure. He had been receiving antibiotics since his admission for wound infection. He was placed in the left lateral decubitus position. The sacral region was prepped and draped in a sterile fashion. The sacral wound was inspected and the medial aspect of the wound overlying the coccyx is where necrotic tissue was noted. This area of tissue was debrided sharply using scissors and pickups. The main portion of the debrided ulcer bed was sent for pathology. There were additional margins of the wound that were also nonviable and this was debrided also sharply. Areas of debridement were performed to a point where bleeding was noted from the underlying tissue. The depth of the wound at its deepest point extended to the connective tissue overlying the coccyx though the bone itself was not exposed. Deeper necrotic tissue once removed from this area revealed a healthy-appearing layer of connective tissue overlying the coccyx. There were no pus pockets noted. Upon completion of debridement of the wound, the wound was irrigated with a Bacitracin solution. Hemostasis was achieved with pinpoint use of electrocautery for small bleeding vessels. A final wound dimensions upon completion of debridement were 5.5 cm x 5.5 cm with a depth of 1.5 cm with an additional area isolated over the coccyx of deeper depth of 2 cm to the connective tissue overlying this bone. Sponge and needle counts were correct at the end of the case. RC:dariel Job ID: [id number] Doc ID: [id number] Shabana Rodriguez MD
--- NOTE | 2016-07-10 11:33 | XRay Report ---
HISTORY: Reason for Exam:elevated wbc FINDINGS: The lungs are clear. The heart, mediastinum, ingrid and pleura are normal. There has been no significant change since 07/07/16. Postoperative changes are again noted in the cervical and thoracic spine. IMPRESSION: Normal chest, without evidence of pneumonia. Interpreted and Authenticated by: Andrew Good 07/10/16
[2016-07-10] MEDS: ENOXAPARIN 120 MG/0.8 ML SYRINGE SQ SCH ×2 (12:22→23:05)
[2016-07-10 13:49] LABS: Appearance,Urine CLEAR; Bacteria,Urine 0 /hpf (0); Bilirubin,Urine NEG (NEG); Color,Urine YELLOW; Glucose,Urine (UA) 50 mg/dL (NEG); Leukocyte Esterase,Urine NEG /uL (NEG); Mucus,Urine FEW /hpf (0); Nitrate,Urine NEG (NEG); Protein,Urine NEG (NEG); Specific Gravity,Urine 1.012 (1.000-1.035); Urine Blood 0.03 mg/dL (<0.03); Urine Hyaline Cast 7 /lpf (0-2); Urine RBC 44 /hpf (0-1); Urine Squamous Epithelial Cell 0 /hpf (0-4); Urine WBC 3 /hpf (0-4)
[2016-07-10] MEDS ORDERED: WARFARIN 3 MG TABLET PO ONE ×2 (14:00)
--- NOTE | 2016-07-10 14:58 | Internal Med Progress Note ---
Medical - PN: Subj Patient information: Note initiated : 07/10/16 at 2:55 pm Service Date, if different from initiated Date: [] Patient: Jesus Amezquita 60 y/o M admitted on 07/07/16 for Sacral Decubitus Ulcer /Infected Wound. Chief Complaint: [] Interval history: The patient seen and examined, management of case discussed with Surgeon as well as the patients the patient has no complaints, doing well, denies pain, is always feeling cold. He had debridement of the wound this AM, and seems to have tolerated the procedure well his WBC count is uptrending, but besides the wound there is no obvious focus. Surgeon and I both agree we must look for another source given that he has wbc has uptrended despite very broad spectrum ABX, and that recent cultures show that wound bacteria are sensitive to the present regime The patient denies cp, sob, abdominal pain, nausea or vomiting, no diarrhea. We plan to recheck X ray chest, get ua, and urine cultures, get blood cultures for now. X ray was reported negative this AM, UA does not suggest overt UTI, plan to await cultures. - Constitutional Vitals: Vital Signs Temp Pulse Resp BP Pulse Ox 98.4 F 58 L 16 125/80 99 07/10/16 11:31 07/10/16 13:29 07/10/16 13:29 07/10/16 11:31 07/10/16 11:31 Period Temp Pulse Resp BP Sys/Graham Pulse Ox Last 24 Hr 97.1 F-99.4 F 49-80 8-24 86-135/50-80 89-99 Intake and Output 07/10/16 07/10/16 07/10/16 05:59 13:59 21:59 Intake Total 250 / 250 660 / 660 300 / 300 Output Total 1650 / 1650 155 / 155 450 / 450 Balance -1400 / -1400 505 / 505 -150 / -150 Weight 251 lb Patient Weight 07/11/16 05:59 Weight 251 lb Intake & Output: Intake & Output 07/10/16 07/10/16 07/10/16 05:59 13:59 21:59 Intake Total 250 / 250 660 / 660 300 / 300 Output Total 1650 / 1650 155 / 155 450 / 450 Balance -1400 / -1400 505 / 505 -150 / -150 Weight 251 lb Intake: IV 250 / 250 660 / 660 Sodium Chloride 0.9% 250 250 / 250 ml @ 250 mls/hr IV Q8H JUAQUIN with Primaxin 1,000 mg Rx#:[id number] Oral 300 / 300 Output: Urine Catheter Amount 1650 / 1650 150 / 150 450 / 450 Estimated Blood Loss 5 / 5 Other: Meal Lunch Percent of Meal Consumed 100% General appearance: cooperative, morbidly obese, no acute distress - Head Head exam: Present: atraumatic, normal inspection, normocephalic - Eye Eye exam: Absent: periorbital swelling, periorbital tenderness, scleral icterus - Respiratory Respiratory exam: Present: normal respiratory exam. Absent: prolonged expiratory phase, respiratory distress, stridor, wheezes - Cardiovascular Cardiovascular exam: Present: irregular rhythm, +S1, +S2 - GI/Abdominal GI/Abdominal exam: Present: normal bowel sounds, soft - Neurological Exam Neurological exam: Present: alert, oriented X3 Additional comments: paraplegic with level of T6-T7 - Psychiatric Psychiatric exam: Present: normal affect, normal mood Medical - PN: Obj Da - Labs CBC & Chem 7: 07/10/16 04:05 07/10/16 04:05 Labs: Abnormal Lab Results 07/10/16 07/10/16 07/10/16 11:32 04:05 04:05 WBC RBC RDW Plt Count Lymph % (Auto) Gran # [place] # PT 19.6 H INR 1.6 H POC Potassium Potassium POC BUN Creatinine 0.6 L POC Creatinine Glucose POC Glucose Uric Acid POC WB Ioniz Calcium Phosphorus 2.2 L AST 41 H Total Protein Albumin 3.0 L Albumin/Globulin Ratio 0.9 L Triglycerides Urine Glucose (UA) 50 A Urine Ketones 5/tr A Urine Occult Blood 0.03 A Urine Urobilinogen 4.0 A Urine RBC 44 H Hyaline Casts 7 H Vancomycin Trough 07/10/16 07/09/16 07/09/16 04:05 12:38 07:59 WBC 18.0 H RBC 4.42 L RDW 14.7 H Plt Count Lymph % (Auto) Gran # 12.6 H [place] # 1.1 H PT INR POC Potassium 2.9 L* Potassium POC BUN 6 L Creatinine POC Creatinine 0.5 L Glucose POC Glucose 114 H Uric Acid POC WB Ioniz Calcium 1.07 L Phosphorus AST Total Protein Albumin Albumin/Globulin Ratio Triglycerides Urine Glucose (UA) Urine Ketones Urine Occult Blood Urine Urobilinogen Urine RBC Hyaline Casts Vancomycin Trough 29.2 H* 07/09/16 07/09/16 07/09/16 05:30 05:30 05:30 WBC 15.0 H RBC 4.41 L RDW 15.1 H Plt Count 450 H Lymph % (Auto) 14.2 L Gran # 11.2 H [place] # PT 21.6 H INR 1.8 H POC Potassium Potassium 2.8 L* POC BUN Creatinine 0.5 L POC Creatinine Glucose 106 H POC Glucose Uric Acid POC WB Ioniz Calcium Phosphorus 2.5 L AST 53 H Total Protein Albumin 3.0 L Albumin/Globulin Ratio 0.9 L Triglycerides Urine Glucose (UA) Urine Ketones Urine Occult Blood Urine Urobilinogen Urine RBC Hyaline Casts Vancomycin Trough 07/08/16 07/08/16 07/08/16 20:35 05:19 05:19 WBC RBC RDW Plt Count Lymph % (Auto) Gran # [place] # PT 22.9 H 26.3 H INR 2.0 H 2.3 H POC Potassium Potassium POC BUN Creatinine POC Creatinine Glucose POC Glucose Uric Acid 8.2 H POC WB Ioniz Calcium Phosphorus AST Total Protein 5.7 L Albumin 2.9 L Albumin/Globulin Ratio Triglycerides 166 H Urine Glucose (UA) Urine Ketones Urine Occult Blood Urine Urobilinogen Urine RBC Hyaline Casts Vancomycin Trough 07/08/16 05:19 WBC 14.9 H RBC 4.19 L RDW 15.2 H Plt Count Lymph % (Auto) Gran # [place] # PT INR POC Potassium Potassium POC BUN Creatinine POC Creatinine Glucose POC Glucose Uric Acid POC WB Ioniz Calcium Phosphorus AST Total Protein Albumin Albumin/Globulin Ratio Triglycerides Urine Glucose (UA) Urine Ketones Urine Occult Blood Urine Urobilinogen Urine RBC Hyaline Casts Vancomycin Trough Meds: Medications Albuterol Sulfate (Ventolin) 2.5 mg NEB Q2HP PRN PRN Reason: Shortness Of Breath Albuterol/Ipratropium (Duoneb) 3 ml NEB QID [facility] Last Admin: 07/10/16 13:29 Dose: 3 ml [facility]) [facility] Last Admin: 07/10/16 12:22 Dose: 200 mg Atorvastatin Calcium (Lipitor) 10 mg PO DAILY [facility] Dextrose (Dextrose 50%) 0 ml IV UD PRN PRN Reason: Hypoglycemia Diltiazem HCl (Cardizem Cd) 120 mg PO DAILY [facility] Last Admin: 07/10/16 12:22 Dose: 120 mg Enoxaparin Sodium (Lovenox) 120 mg SQ BID [facility] Last Admin: 07/10/16 12:22 Dose: 120 mg Furosemide (Lasix) 40 mg PO BIDD [facility] Gabapentin (Neurontin) 800 mg PO TID [facility] Last Admin: 07/10/16 14:16 Dose: 800 mg Imipenem/Cilastatin Sodium 1, (000 mg/ Sodium Chloride) 250 mls @ 250 mls/hr IV Q8 [facility] Last Admin: 07/10/16 14:16 Dose: 250 mls/hr Magnesium Hydroxide (Milk Of Magnesia) 30 ml PO DAILYP PRN PRN Reason: Constipation Ondansetron HCl (Zofran) 4 mg IV Q6HP PRN PRN Reason: Nausea And Vomiting Oxycodone HCl (Oxycontin) 20 mg PO BID JUAQUIN Oxycodone HCl (Roxicodone) 5 mg PO Q4HP PRN PRN Reason: Pain Last Admin: 07/10/16 10:35 Dose: 5 mg Budesonide/Formoterol ( Symbicort) 80/4.5 Mcg Inhaler 2 dose INH BID [facility] Potassium Chloride (Kdur) 20 meq PO QAMCC [facility] Potassium/Phosphorus/Sodium (Neutra Phos) 1 packet PO BID [facility] Last Admin: 07/10/16 10:34 Dose: 1 packet Sodium Chloride (Saline Flush) 10 ml IV Q8 [facility] Tolterodine Tartrate (Detrol La) 4 mg PO DAILY [facility] Vitamin D (Vitamin D3) 4,000 unit PO DAILY [facility] Medical - PN: A/P - Time Spent With Patient Total time spent is greater than 50% in coordination of care (as documented) at patient's floor/unit and/or counseling patient: (1) Infected wound Status: Acute Assessment and plan: WBC upto 18. likely from infected wound, wound debrided in the OR yesterday. repeat X ray chest clean, UA neg If the wbc count keeps rising, then will have to get CT chest without contrast , and CT Abdomen and pelvis, the patient paraplegia may mask a infective focus in the stomach. Continue with IV antibiotics for now. vanco and imipenum Current Visit: Yes (2) Bradycardia Status: Acute Assessment and plan: stable, asymptomatic, tsh neg, due to medications amiodarone, cardizem Current Visit: Yes (3) Sacral decubitus ulcer Status: Acute Assessment and plan: management as per surgery s/p debridement today, monitor. consideration for LTAC placement for wound care management, family yet to decide. Current Visit: Yes (4) Anticoagulated on Coumadin Status: Chronic Assessment and plan: INR 1.6, coumadin resumed start on lovenox given that the patient his high risk of DVT. 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 ativan 0.5mg did help the patient last night. Current Visit: Yes Medical - PN: Qual - VTE Deep Vein Thrombosis/Pulmonary Embolism Present on Admission: No
[2016-07-10] MEDS: LORazepam 0.5 MG TABLET PO PRN (22:58)
[2016-07-11] MEDS: oxyCODONE HCL 5 MG TABLET PO PRN ×3 (03:27→13:09)
[2016-07-11] MEDS: LORazepam 0.5 MG TABLET PO PRN (04:50)
[2016-07-11] MEDS: IMIPENEM/CILASTATIN SODIUM 1,000 MG in 0.9 % SODIUM CHLORIDE 250 ML IV SCH ×3 (06:01→21:43)
[2016-07-11] MEDS: 0.9 % SODIUM CHLORIDE 10 ML SYRINGE IV SCH ×3 (06:01→21:42)
[2016-07-11] MEDS: ONDANSETRON 4 MG/2 ML VIAL IV PRN (06:01)
[2016-07-11 06:58] LABS: Basophils # (Auto) 0.1 K/mcL (0.0-0.3); Basophils % (Auto) 0.8 % (0.0-2.0); Eosinophils # (Auto) 0.7 K/mcL (0.0-0.7); Eosinophils % (Auto) 4.5 % (0.0-7.0); Granulocytes % (Auto) 62.9 % (38.0-78.0); Lymphocytes # (Auto) 3.8 K/mcL (1.5-4.8); Lymphocytes % (Auto) 23.5 % (15.5-49.0); Mean Cell Volume 99.7 fL (80.0-100.0); Mean Corpuscular HGB Conc 32.2 g/dL (31.0-36.0); Mean Corpuscular Hemoglobin 32.2 pg (26.0-34.0); Monocytes # (Auto) 1.4 K/mcL (0.1-0.9); Monocytes % (Auto) 8.3 % (1.0-9.0); Platelet Count 430 K/mcL (140-440); RBC 4.37 M/mcL (4.50-5.90); Red Cell Distribution Width 14.9 % (11.5-14.5)
[2016-07-11 07:30] LABS: ALT/SGPT 22 U/l (0-40); Albumin 3.2 gm/dL (3.2-5.2); Albumin/Globulin Ratio 1.1 (1.0-2.3); Alkaline Phosphatase 100 U/L (39-117); Bilirubin,Direct < 0.2 mg/dL (0.0-0.3); Blood Urea Nitrogen 8 mg/dl (8-23); Gamma Glutamyl Transpeptidase 54 U/L (8-61); Magnesium 1.8 mg/dL (1.6-2.5); Phosphorous 2.6 mg/dL (2.7-4.5); Uric Acid 6.1 mg/dL (2.5-8.0)
[2016-07-11] MEDS ORDERED: AMIODARONE HCL 200 MG TABLET PO SCH (08:00)
[2016-07-11] MEDS: GABAPENTIN 400 MG CAPSULE PO SCH ×3 (08:50→21:18)
[2016-07-11] MEDS: POTASSIUM CHLORIDE 20 MEQ TABLET PO SCH (08:52)
[2016-07-11] MEDS: NEUTRA PHOS 1 PACKET PO SCH ×2 (08:52→21:16)
[2016-07-11] MEDS: DILTIAZEM 120 MG CAP.XL.24H PO SCH (08:52)
[2016-07-11] MEDS: oxyCODONE 20 MG TAB.ER.12H PO SCH ×2 (08:53→21:18)
[2016-07-11] MEDS: AMIODARONE HCL 200 MG TABLET PO SCH (08:54)
[2016-07-11] MEDS: FUROSEMIDE 40 MG TABLET PO SCH ×2 (08:54→15:49)
[2016-07-11] MEDS: VITAMIN D3 1,000 UNIT TABLET PO SCH (08:55)
[2016-07-11] MEDS: TOLTERODINE 2 MG CAP.XL.24H PO SCH (08:55)
[2016-07-11] MEDS: ENOXAPARIN 120 MG/0.8 ML SYRINGE SQ SCH ×2 (08:55→21:18)
[2016-07-11] MEDS: ATORVASTATIN 20 MG TABLET PO SCH (08:56)
[2016-07-11] MEDS ORDERED: DILTIAZEM 120 MG CAP.XL.24H PO SCH (09:00)
[2016-07-11] MEDS: FORMOTEROL INH SCH ×2 (09:04→21:16)
[2016-07-11] MEDS: BUDESONIDE INH SCH ×2 (09:04→21:16)
[2016-07-11 09:27] LABS: ALT/SGPT 21 U/l (0-40); Albumin 3.1 gm/dL (3.2-5.2); Albumin/Globulin Ratio 0.9 (1.0-2.3); Alkaline Phosphatase 96 U/L (39-117); Bilirubin,Direct < 0.2 mg/dL (0.0-0.3); Blood Urea Nitrogen 8 mg/dl (8-23); Gamma Glutamyl Transpeptidase 51 U/L (8-61); Magnesium 1.8 mg/dL (1.6-2.5); Phosphorous 2.1 mg/dL (2.7-4.5); Uric Acid 6.2 mg/dL (2.5-8.0); Vancomycin,Random 10.8 ug/ml
[2016-07-11] MEDS: IPRATROPIUM/ALBUTEROL 3 ML AMPUL.NEB NEB SCH ×4 (10:05→21:55)
--- NOTE | 2016-07-11 10:13 | General Surgery Progress Note ---
Surgical - Auxillary Note - Subjective Patient Information: Note initiated : 07/11/16 at 9:39 am Service Date, if different from initiated Date: [] Patient: Jesus Amezquita 60 y/o M admitted on 07/07/16 for Sacral Decubitus Ulcer /Infected Wound. Chief Complaint: Patient resting in bed. Nursing reports he did not sleep last night and having issues with anxiety when no one in the room and especially at night. Patient confirms he is having issues with anxiety. Currently is at the bedside and he reports he is more anxious when no one is in the room. Vital Signs Temp Pulse Resp BP Pulse Ox 98.9 F 68 20 108/69 95 07/11/16 06:50 07/11/16 06:50 07/11/16 06:50 07/11/16 06:50 07/11/16 06:50 Period Temp Pulse Resp BP Sys/Graham Pulse Ox Last 24 Hr 97.8 F-98.9 F 55-78 12-20 103-148/61-80 90-99 Intake and Output 07/10/16 07/11/16 07/11/16 21:59 05:59 13:59 Intake Total 950 / 950 1530 / 1530 700 / 700 Output Total 675 / 675 1800 / 1800 Balance 275 / 275 -270 / -270 700 / 700 Weight 249 lb PE: Alert and oriented to person place and circumstance. Appropriate in conversation. Sacral wound bed clean. No new granulation tissue as of yet. Bleeding from edges where dressing has stuck to wound. Wound redressed with Voshe moistened guaze and ABD pad. CBC and Chem 7 07/11/16 04:35 07/11/16 07:50 A/P: Stage 4 sacral pressure wound. Wound bed clean post debridement. WBCs slightly improved. Consider wound VAC placement within next 24hrs if bed remains clean. Patient stable but having intermittent anxiety: will order sitter for night time. Hospitalist started low dose ativan prn. Conitnue IV antibiotics for total 2 weeks of therapy for wound infection.
[2016-07-11] MEDS: VANCOMYCIN 1,000 MG in 0.9 % SODIUM CHLORIDE 250 ML IV SCH (10:37)
--- NOTE | 2016-07-11 11:41 | Internal Med Progress Note ---
Medical - PN: Subj Patient information: Note initiated : 07/11/16 at 11:36 am Service Date, if different from initiated Date: [] Patient: Jesus Amezquita 60 y/o M admitted on 07/07/16 for Sacral Decubitus Ulcer /Infected Wound. Chief Complaint: [] Interval history: The patient seen examined, Patients overnight events noted did have some overnight delirum, gets anxious when left alone, has prn ativan ordered. He does not endorse any new complaints today, no chest pain, shortness of breath , c ough or abdominal pain, no nausea or vomiting. The patients wounds looked ok as per surgeon Labs reviwed, wbc is trending down today, the patient workup for secondary source if infection is negative so far, if wbc goes up again, consider CT abdomen and pelvis. - Constitutional Vitals: Vital Signs Temp Pulse Resp BP Pulse Ox 98.9 F 55 L 16 108/69 93 07/11/16 06:50 07/11/16 09:40 07/11/16 09:40 07/11/16 06:50 07/11/16 09:40 Period Temp Pulse Resp BP Sys/Graham Pulse Ox Last 24 Hr 97.8 F-98.9 F 55-78 14-20 103-148/61-79 93-97 Intake and Output 07/10/16 07/11/16 07/11/16 21:59 05:59 13:59 Intake Total 950 / 950 1530 / 1530 946 / 946 Output Total 675 / 675 1800 / 1800 Balance 275 / 275 -270 / -270 946 / 946 Weight 249 lb Intake & Output: Intake & Output 07/10/16 07/11/16 07/11/16 21:59 05:59 13:59 Intake Total 950 / 950 1530 / 1530 946 / 946 Output Total 675 / 675 1800 / 1800 Balance 275 / 275 -270 / -270 946 / 946 Weight 249 lb Intake: IV 250 / 250 250 / 250 246 / 246 Sodium Chloride 0.9% 250 250 / 250 250 / 250 246 / 246 ml @ 250 mls/hr IV Q8 [facility] with Primaxin 1,000 mg Rx#:[id number] Oral 700 / 700 1280 / 1280 700 / 700 Output: Urine Catheter Amount 675 / 675 1800 / 1800 Other: # Bowel Movements 1 General appearance: cooperative, no acute distress - Head Head exam: Present: atraumatic - Eye Eye exam: Absent: periorbital tenderness, scleral icterus - Neck Neck exam: Present: normal inspection - Respiratory Respiratory exam: Present: normal respiratory exam. Absent: prolonged expiratory phase, stridor, wheezes - Cardiovascular Cardiovascular exam: Present: irregular rhythm, +S1, +S2 - GI/Abdominal GI/Abdominal exam: Present: normal bowel sounds, soft. Absent: guarding, rigid , tenderness - Neurological Exam Neurological exam: Present: alert, CN II-XII intact, oriented X3 - Skin Skin exam: Present: warm. Absent: rash, urticaria Medical - PN: Obj Da - Labs CBC & Chem 7: 07/11/16 04:35 07/11/16 07:50 Labs: Abnormal Lab Results 07/11/16 07/11/16 07/11/16 07:50 04:35 04:35 WBC 16.3 H RBC 4.37 L RDW 14.9 H Plt Count Lymph % (Auto) Gran # 10.2 H [place] # 1.4 H PT INR POC Potassium Potassium POC BUN Creatinine 0.6 L 0.6 L POC Creatinine Glucose POC Glucose POC WB Ioniz Calcium Phosphorus 2.1 L 2.6 L AST 39 H 40 H Albumin 3.1 L Albumin/Globulin Ratio 0.9 L Urine Glucose (UA) Urine Ketones Urine Occult Blood Urine Urobilinogen Urine RBC Hyaline Casts Vancomycin Trough 07/11/16 07/10/16 07/10/16 04:35 11:32 04:05 WBC RBC RDW Plt Count Lymph % (Auto) Gran # [place] # PT 19.7 H INR 1.6 H POC Potassium Potassium POC BUN Creatinine 0.6 L POC Creatinine Glucose POC Glucose POC WB Ioniz Calcium Phosphorus 2.2 L AST 41 H Albumin 3.0 L Albumin/Globulin Ratio 0.9 L Urine Glucose (UA) 50 A Urine Ketones 5/tr A Urine Occult Blood 0.03 A Urine Urobilinogen 4.0 A Urine RBC 44 H Hyaline Casts 7 H Vancomycin Trough 07/10/16 07/10/16 07/09/16 04:05 04:05 12:38 WBC 18.0 H RBC 4.42 L RDW 14.7 H Plt Count Lymph % (Auto) Gran # 12.6 H [place] # 1.1 H PT 19.6 H INR 1.6 H POC Potassium 2.9 L* Potassium POC BUN 6 L Creatinine POC Creatinine 0.5 L Glucose POC Glucose 114 H POC WB Ioniz Calcium 1.07 L Phosphorus AST Albumin Albumin/Globulin Ratio Urine Glucose (UA) Urine Ketones Urine Occult Blood Urine Urobilinogen Urine RBC Hyaline Casts Vancomycin Trough 07/09/16 07/09/16 07/09/16 07:59 05:30 05:30 WBC 15.0 H RBC 4.41 L RDW 15.1 H Plt Count 450 H Lymph % (Auto) 14.2 L Gran # 11.2 H [place] # PT INR POC Potassium Potassium 2.8 L* POC BUN Creatinine 0.5 L POC Creatinine Glucose 106 H POC Glucose POC WB Ioniz Calcium Phosphorus 2.5 L AST 53 H Albumin 3.0 L Albumin/Globulin Ratio 0.9 L Urine Glucose (UA) Urine Ketones Urine Occult Blood Urine Urobilinogen Urine RBC Hyaline Casts Vancomycin Trough 29.2 H* 07/09/16 07/08/16 05:30 20:35 WBC RBC RDW Plt Count Lymph % (Auto) Gran # [place] # PT 21.6 H 22.9 H INR 1.8 H 2.0 H POC Potassium Potassium POC BUN Creatinine POC Creatinine Glucose POC Glucose POC WB Ioniz Calcium Phosphorus AST Albumin Albumin/Globulin Ratio Urine Glucose (UA) Urine Ketones Urine Occult Blood Urine Urobilinogen Urine RBC Hyaline Casts Vancomycin Trough Meds: Medications Albuterol Sulfate (Ventolin) 2.5 mg NEB Q2HP PRN PRN Reason: Shortness Of Breath Albuterol/Ipratropium (Duoneb) 3 ml NEB QID [facility] Last Admin: 07/11/16 10:05 Dose: 3 ml [facility] Admin: 07/11/16 08:54 Dose: 200 mg Atorvastatin Calcium (Lipitor) 10 mg PO DAILY [facility] Last Admin: 07/11/16 08:56 Dose: 10 mg Dextrose (Dextrose 50%) 0 ml IV UD PRN PRN Reason: Hypoglycemia Diltiazem HCl (Cardizem Cd) 120 mg PO DAILY [facility] Last Admin: 07/11/16 08:52 Dose: 120 mg Enoxaparin Sodium (Lovenox) 120 mg SQ BID [facility] Last Admin: 07/11/16 08:55 Dose: 120 mg Furosemide (Lasix) 40 mg PO BIDD [facility] Last Admin: 07/11/16 08:54 Dose: 40 mg Gabapentin (Neurontin) 800 mg PO TID [facility] Last Admin: 07/11/16 08:50 Dose: 800 mg Imipenem/Cilastatin Sodium 1, (000 mg/ Sodium Chloride) 250 mls @ 250 mls/hr IV Q8 [facility] Last Infusion: 07/11/16 07:00 Dose: 250 mls/hr Vancomycin HCl 1,000 mg/ (Sodium Chloride) 250 mls @ 250 mls/hr IV Q24H [facility] Last Admin: 07/11/16 10:37 Dose: 250 mls/hr Lidocaine (Lidoderm) 1 patch TOPICAL HS [facility] Lidocaine (Lidoderm) 0 patch TOPICAL DAILY [facility] Lorazepam (Ativan) 0.5 mg PO Q6HP PRN PRN Reason: Anxiety Last Admin: 07/11/16 04:50 Dose: 0.5 mg Magnesium Hydroxide (Milk Of Magnesia) 30 ml PO DAILYP PRN PRN Reason: Constipation Ondansetron HCl (Zofran) 4 mg IV Q6HP PRN PRN Reason: Nausea And Vomiting Last Admin: 07/11/16 06:01 Dose: 4 mg Oxycodone HCl (Oxycontin) 20 mg PO BID [facility] Last Admin: 07/11/16 08:53 Dose: 20 mg Oxycodone HCl (Roxicodone) 5 mg PO Q4HP PRN PRN Reason: Pain Last Admin: 07/11/16 07:48 Dose: 5 mg Budesonide/Formoterol ( Symbicort) 80/4.5 Mcg Inhaler 2 dose INH BID [facility] Last Admin: 07/11/16 09:04 Dose: 2 dose Androgel 1% Gel 1 dose TOPICAL DAILY [facility] Potassium Chloride (Kdur) 20 meq PO QAC [facility] Last Admin: 07/11/16 08:52 Dose: 20 meq Potassium/Phosphorus/Sodium (Neutra Phos) 1 packet PO BID [facility] Last Admin: 07/11/16 08:52 Dose: 1 packet Sodium Chloride (Saline Flush) 10 ml IV Q8 [facility] Last Admin: 07/11/16 06:01 Dose: 10 ml Tolterodine Tartrate (Detrol La) 4 mg PO DAILY [facility] Last Admin: 07/11/16 08:55 Dose: 4 mg Vitamin D (Vitamin D3) 4,000 unit PO DAILY [facility] Last Admin: 07/11/16 08:55 Dose: 4,000 unit Medical - PN: A/P - Time Spent With Patient Total time spent is greater than 50% in coordination of care (as documented) at patient's floor/unit and/or counseling patient: (1) Infected wound Status: Acute Assessment and plan: WBC downtrending nwo, likely from infected wound, wound debrided in the OR yesterday. repeat workup for another source is negative so far Plan to treat iwth IV antibiotics x 2 weeks will likely need a PICC line on discharge. today is D4/14 LTAC facility considered for wound care, however patients wants to know about the cost of such treatments. Current Visit: Yes (2) Sacral decubitus ulcer Status: Acute Assessment and plan: management as per surgery Current Visit: Yes (3) Anticoagulated on Coumadin Status: Chronic Assessment and plan: INR 1.6, coumadin resumed start on lovenox given that the patient his high risk of DVT. monitor INR daily. Current Visit: No (4) COPD (chronic obstructive pulmonary disease) Status: Chronic Assessment and plan: on home meds symbicort, continue same prn albuterol Current Visit: No (5) Paroxysmal a-fib Status: Chronic Assessment and plan: stable HR, asymptomatic, Current Visit: No (6) Anxiety Status: Acute Assessment and plan: The pt gets anxious when left alone prn ativan for now at home seems to take his wifes ativan if there are episodes of panic attack. Current Visit: Yes Medical - PN: Qual - VTE Deep Vein Thrombosis/Pulmonary Embolism Present on Admission: No
[2016-07-11] MEDS: LIDOCAINE PATCH TOPICAL SCH (21:16)
[2016-07-11] MEDS ORDERED: IMIPENEM/CILASTATIN SODIUM 500 MG VIAL IV ONE (21:39)
[2016-07-12] MEDS: oxyCODONE HCL 5 MG TABLET PO PRN ×2 (02:39→21:33)
[2016-07-12] MEDS ORDERED: IMIPENEM/CILASTATIN SODIUM 500 MG VIAL IV ONE (02:47)
[2016-07-12] MEDS: 0.9 % SODIUM CHLORIDE 10 ML SYRINGE IV SCH ×3 (05:25→21:33)
[2016-07-12] MEDS: IMIPENEM/CILASTATIN SODIUM 1,000 MG in 0.9 % SODIUM CHLORIDE 250 ML IV SCH ×3 (05:26→21:33)
[2016-07-12] MEDS: BUDESONIDE INH SCH ×2 (07:53→20:05)
[2016-07-12] MEDS: IPRATROPIUM/ALBUTEROL 3 ML AMPUL.NEB NEB SCH ×4 (07:53→21:17)
[2016-07-12] MEDS: FORMOTEROL INH SCH ×2 (07:53→20:05)
--- NOTE | 2016-07-12 08:35 | General Surgery Progress Note ---
Surgical - Auxillary Note - Subjective Patient Information: Note initiated : 07/12/16 at 8:32 am Service Date, if different from initiated Date: [] Patient: Jesus Amezquita 60 y/o M admitted on 07/07/16 for Sacral Decubitus Ulcer /Infected Wound. Chief Complaint: Patient feeling better this morning. Says he rested well yesterday and last night. Vital Signs Temp Pulse Resp BP Pulse Ox 98.7 F 54 L 18 99/62 94 07/12/16 06:21 07/12/16 06:21 07/12/16 06:21 07/12/16 06:21 07/12/16 06:21 Period Temp Pulse Resp BP Sys/Graham Pulse Ox Last 24 Hr 97.8 F-98.7 F 54-70 16-20 90-114/47-71 92-96 Intake and Output 07/11/16 07/12/16 07/12/16 21:59 05:59 13:59 Intake Total 740 / 740 480 / 480 Output Total 1400 / 1400 550 / 550 Balance -660 / -660 -70 / -70 Weight 249 lb PE: Examination of the wound shows bed is clean with vascularized tissue throughout most of the bed. Deepest part overlying coccyx not granulated but tissue normal and healthy appearing. Wound dressed with VAc this morning. A/P: Sacral pressure sore, stage 4. Wound improved. VAC therapy started this morning. Plan change daily for now to see if responding to this. Cont. antibiotics and current surface for maximal pressure relief.
[2016-07-12] MEDS: NEUTRA PHOS 1 PACKET PO SCH ×2 (08:39→20:16)
[2016-07-12] MEDS: VITAMIN D3 1,000 UNIT TABLET PO SCH (08:40)
[2016-07-12] MEDS: ATORVASTATIN 20 MG TABLET PO SCH (08:40)
[2016-07-12] MEDS: DILTIAZEM 120 MG CAP.XL.24H PO SCH (08:40)
[2016-07-12] MEDS: GABAPENTIN 400 MG CAPSULE PO SCH ×3 (08:40→20:04)
[2016-07-12] MEDS: AMIODARONE HCL 200 MG TABLET PO SCH (08:41)
[2016-07-12] MEDS: TOLTERODINE 2 MG CAP.XL.24H PO SCH (08:42)
[2016-07-12] MEDS: FUROSEMIDE 40 MG TABLET PO SCH ×2 (08:42→15:54)
[2016-07-12] MEDS: POTASSIUM CHLORIDE 20 MEQ TABLET PO SCH (08:42)
[2016-07-12] MEDS: oxyCODONE 20 MG TAB.ER.12H PO SCH ×2 (08:44→20:05)
[2016-07-12] MEDS ORDERED: ANDROGEL 1% TOPICAL SCH (09:00)
[2016-07-12] MEDS ORDERED: 0.9 % SODIUM CHLORIDE 10 ML SYRINGE IV PRN (09:04)
[2016-07-12] MEDS: LIDOCAINE PATCH TOPICAL SCH ×2 (09:12→20:06)
[2016-07-12] MEDS: VANCOMYCIN 1,000 MG in 0.9 % SODIUM CHLORIDE 250 ML IV SCH (09:19)
[2016-07-12] MEDS ORDERED: ENOXAPARIN 120 MG/0.8 ML SYRINGE ONE (09:39)
[2016-07-12] MEDS: ENOXAPARIN 120 MG/0.8 ML SYRINGE SQ SCH ×2 (09:52→20:04)
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
[2016-07-12 12:31] LABS: Basophils # (Auto) 0.1 K/mcL (0.0-0.3); Basophils % (Auto) 0.5 % (0.0-2.0); Eosinophils # (Auto) 0.8 K/mcL (0.0-0.7); Eosinophils % (Auto) 5.5 % (0.0-7.0); Granulocytes % (Auto) 67.3 % (38.0-78.0); Lymphocytes % (Auto) 20.4 % (15.5-49.0); Mean Cell Volume 100.7 fL (80.0-100.0); Mean Corpuscular HGB Conc 31.9 g/dL (31.0-36.0); Mean Corpuscular Hemoglobin 32.1 pg (26.0-34.0); Monocytes # (Auto) 0.9 K/mcL (0.1-0.9); Monocytes % (Auto) 6.3 % (1.0-9.0); Platelet Count 434 K/mcL (140-440); RBC 4.33 M/mcL (4.50-5.90); Red Cell Distribution Width 15.3 % (11.5-14.5)
[2016-07-12 12:44] LABS: ALT/SGPT 20 U/l (0-40); Albumin 2.6 gm/dL (3.2-5.2); Albumin/Globulin Ratio 0.7 (1.0-2.3); Alkaline Phosphatase 93 U/L (39-117); Bilirubin,Direct < 0.2 mg/dL (0.0-0.3); Blood Urea Nitrogen 9 mg/dl (8-23); Gamma Glutamyl Transpeptidase 54 U/L (8-61); Phosphorous 2.8 mg/dL (2.7-4.5); Uric Acid 6.2 mg/dL (2.5-8.0)
[2016-07-12] MEDS: LORazepam 0.5 MG TABLET PO PRN (17:51)
[2016-07-13] MEDS: oxyCODONE HCL 5 MG TABLET PO PRN ×3 (03:16→15:30)
[2016-07-13] MEDS: 0.9 % SODIUM CHLORIDE 10 ML SYRINGE IV SCH ×3 (05:51→22:50)
[2016-07-13] MEDS: IMIPENEM/CILASTATIN SODIUM 1,000 MG in 0.9 % SODIUM CHLORIDE 250 ML IV SCH ×3 (05:51→22:58)
[2016-07-13 07:56] LABS: Basophils # (Auto) 0.1 K/mcL (0.0-0.3); Basophils % (Auto) 0.6 % (0.0-2.0); Eosinophils # (Auto) 0.9 K/mcL (0.0-0.7); Eosinophils % (Auto) 6.2 % (0.0-7.0); Granulocytes % (Auto) 59.4 % (38.0-78.0); Lymphocytes # (Auto) 4.2 K/mcL (1.5-4.8); Lymphocytes % (Auto) 28.1 % (15.5-49.0); Mean Cell Volume 100.2 fL (80.0-100.0); Mean Corpuscular HGB Conc 32.3 g/dL (31.0-36.0); Mean Corpuscular Hemoglobin 32.4 pg (26.0-34.0); Monocytes # (Auto) 0.9 K/mcL (0.1-0.9); Monocytes % (Auto) 5.7 % (1.0-9.0); Platelet Count 402 K/mcL (140-440); Red Cell Distribution Width 15.1 % (11.5-14.5)
[2016-07-13] MEDS: POTASSIUM CHLORIDE 20 MEQ TABLET PO SCH (08:44)
[2016-07-13] MEDS: DILTIAZEM 120 MG CAP.XL.24H PO SCH (08:44)
[2016-07-13] MEDS: VITAMIN D3 1,000 UNIT TABLET PO SCH (08:44)
[2016-07-13] MEDS: GABAPENTIN 400 MG CAPSULE PO SCH ×3 (08:44→20:57)
[2016-07-13] MEDS: AMIODARONE HCL 200 MG TABLET PO SCH (08:44)
[2016-07-13] MEDS: FUROSEMIDE 40 MG TABLET PO SCH ×2 (08:44→15:27)
[2016-07-13] MEDS: ENOXAPARIN 120 MG/0.8 ML SYRINGE SQ SCH ×2 (08:45→20:56)
[2016-07-13] MEDS: TOLTERODINE 2 MG CAP.XL.24H PO SCH (08:45)
[2016-07-13] MEDS: LIDOCAINE PATCH TOPICAL SCH ×2 (08:45→20:57)
[2016-07-13 08:46] LABS: ALT/SGPT 24 U/l (0-40); Albumin 2.9 gm/dL (3.2-5.2); Alkaline Phosphatase 101 U/L (39-117); Bilirubin,Direct < 0.2 mg/dL (0.0-0.3); Blood Urea Nitrogen 11 mg/dl (8-23); Gamma Glutamyl Transpeptidase 62 U/L (8-61); Phosphorous 3.1 mg/dL (2.7-4.5); Uric Acid 6.4 mg/dL (2.5-8.0)
[2016-07-13] MEDS: oxyCODONE 20 MG TAB.ER.12H PO SCH ×2 (08:46→19:36)
[2016-07-13] MEDS: ATORVASTATIN 20 MG TABLET PO SCH (08:46)
[2016-07-13] MEDS: NEUTRA PHOS 1 PACKET PO SCH ×2 (08:46→20:57)
[2016-07-13] MEDS: FORMOTEROL INH SCH ×2 (08:47→22:50)
[2016-07-13] MEDS: BUDESONIDE INH SCH ×2 (08:47→22:50)
[2016-07-13] MEDS: IPRATROPIUM/ALBUTEROL 3 ML AMPUL.NEB NEB SCH ×4 (09:02→20:55)
--- NOTE | 2016-07-13 10:33 | General Surgery Progress Note ---
Surgical - Auxillary Note - Subjective Patient Information: Note initiated : 07/13/16 at 9:51 am Service Date, if different from initiated Date: [] Patient: Jesus Amezquita 60 y/o M admitted on 07/07/16 for Sacral Decubitus Ulcer /Infected Wound. Chief Complaint: Patient says he is feeling better. Resting better and appetite is improving. Tolerated VAC therapy. Denies chills. Vital Signs Temp Pulse Resp BP Pulse Ox 98.5 F 60 16 100/62 98 07/13/16 06:14 07/13/16 09:13 07/13/16 09:13 07/13/16 06:14 07/13/16 09:18 Period Temp Pulse Resp BP Sys/Graham Pulse Ox Last 24 Hr 97.6 F-98.5 F 56-64 12-18 93-109/54-65 94-98 Intake and Output 07/12/16 07/13/16 07/13/16 21:59 05:59 13:59 Intake Total 610 / 610 850 / 850 1050 / 1050 Output Total 1350 / 1350 1625 / 1625 Balance -740 / -740 -775 / -775 1050 / 1050 PE: No distress. Alert and oriented and appropriate in conversation. Focused exam of wound shows wound bed clean. Deep base overlying coccyx remains viable but no granulation tissue developing yet. Remainder of the wound with healthy well vascularized tissue. No odor and minimal drainage in VAC container. A/P: Stage 4 sacral pressure ulcer in paraplegic. Patient stable. Wound showing improvement with current therapy. Needs to complete course of antibiotics. Recommend maintain on [place] Matt[place] if possible for continued pressure release to offer optimal chance of wound healing. Discussed options of continued wound care with patient and and these are being investigated by social welfare research worker. Patient will need wound care follow up after discharge but patient and request a different physician; he does not want to return [facility] with Dr. Denson. Will work on referrral.
[2016-07-13] MEDS: VANCOMYCIN 1,000 MG in 0.9 % SODIUM CHLORIDE 250 ML IV SCH (10:52)
[2016-07-13] MEDS: TESTOSTERONE TOPICAL SCH (10:52)
[2016-07-13] MEDS: [UNRECOGNIZED DRUG - OTHER] TOPICAL SCH (10:52)
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
[2016-07-13] MEDS ORDERED: WARFARIN 3 MG TABLET PO SCH (14:00)
[2016-07-13] MEDS ORDERED: IMIPENEM/CILASTATIN SODIUM 500 MG VIAL IV ONE (23:03)
[2016-07-14] MEDS: oxyCODONE HCL 5 MG TABLET PO PRN ×5 (02:48→20:28)
[2016-07-14] MEDS: IMIPENEM/CILASTATIN SODIUM 1,000 MG in 0.9 % SODIUM CHLORIDE 250 ML IV SCH ×3 (05:09→22:37)
[2016-07-14] MEDS: LORazepam 0.5 MG TABLET PO PRN ×2 (05:09→20:27)
[2016-07-14] MEDS: 0.9 % SODIUM CHLORIDE 10 ML SYRINGE IV SCH ×3 (05:10→22:38)
[2016-07-14 06:06] LABS: Basophils # (Auto) 0.1 K/mcL (0.0-0.3); Basophils % (Auto) 0.4 % (0.0-2.0); Eosinophils % (Auto) 6.6 % (0.0-7.0); Lymphocytes # (Auto) 4.2 K/mcL (1.5-4.8); Mean Cell Volume 99.6 fL (80.0-100.0); Mean Corpuscular HGB Conc 32.2 g/dL (31.0-36.0); Monocytes # (Auto) 0.9 K/mcL (0.1-0.9); Platelet Count 413 K/mcL (140-440); RBC 4.06 M/mcL (4.50-5.90); Red Cell Distribution Width 15.2 % (11.5-14.5)
[2016-07-14 06:38] LABS: ALT/SGPT 23 U/l (0-40); Albumin 2.9 gm/dL (3.2-5.2); Albumin/Globulin Ratio 0.9 (1.0-2.3); Alkaline Phosphatase 99 U/L (39-117); Bilirubin,Direct < 0.2 mg/dL (0.0-0.3); Blood Urea Nitrogen 14 mg/dl (8-23); Gamma Glutamyl Transpeptidase 63 U/L (8-61); Phosphorous 2.8 mg/dL (2.7-4.5); Uric Acid 6.3 mg/dL (2.5-8.0)
[2016-07-14] MEDS: FUROSEMIDE 40 MG TABLET PO SCH ×2 (08:07→16:50)
[2016-07-14] MEDS: POTASSIUM CHLORIDE 20 MEQ TABLET PO SCH (08:07)
[2016-07-14] MEDS: AMIODARONE HCL 200 MG TABLET PO SCH (08:07)
[2016-07-14] MEDS: NEUTRA PHOS 1 PACKET PO SCH ×2 (09:00→20:26)
[2016-07-14] MEDS: TOLTERODINE 2 MG CAP.XL.24H PO SCH (09:00)
[2016-07-14] MEDS: DILTIAZEM 120 MG CAP.XL.24H PO SCH (09:00)
[2016-07-14] MEDS: oxyCODONE 20 MG TAB.ER.12H PO SCH ×2 (09:01→20:27)
[2016-07-14] MEDS: ATORVASTATIN 20 MG TABLET PO SCH (09:01)
--- NOTE | 2016-07-14 09:01 | General Surgery Progress Note ---
Surgical - Auxillary Note - Subjective Patient Information: Note initiated : 07/14/16 at 8:54 am Service Date, if different from initiated Date: [] Patient: Jesus Amezquita 60 y/o M admitted on 07/07/16 for Sacral Decubitus Ulcer /Infected Wound. Chief Complaint: Patient feeling fine this morning. No complaints. Denies chills. Vital Signs Temp Pulse Resp BP Pulse Ox 97.6 F 58 L 16 97/60 95 07/14/16 06:43 07/14/16 06:43 07/14/16 06:43 07/14/16 06:43 07/14/16 06:43 Period Temp Pulse Resp BP Sys/Graham Pulse Ox Last 24 Hr 97.6 F-99.3 F 54-66 12-16 91-101/52-65 94-98 Intake and Output 07/13/16 07/14/16 07/14/16 21:59 05:59 13:59 Intake Total 1670 / 1670 350 / 350 200 / 200 Output Total 2100 / 2100 2250 / 2250 Balance -430 / -430 -1900 / -1900 200 / 200 PE: Focused exam of sacral wound shows wound bed clean and early granulation tissue forming including in base near coccyx. No drainage and no odor. No necrosis. No surrounding erythema or fluctuance. CBC and Chem 7 07/14/16 04:35 07/14/16 04:30 A/P: Sacral pressure ulcer, stage 4 complete abx to total 4 weeks. Tolerating wound VAC and wound remains clean and responding. Continue w/ daily dressing and if continues to improve can move to QOD dressings. Clinitron bed right now most optimal surface for healing. municipal services manager working on motorbike courier plan for care. Patient will likely need follow up wound care motorbike courier but wishes referral to another physician than he has been seeing. Discussed case with Dr. Rivers in General surgery who will be coming back on service and will assume management of patient's wound.
[2016-07-14] MEDS: VITAMIN D3 1,000 UNIT TABLET PO SCH (09:02)
[2016-07-14] MEDS: GABAPENTIN 400 MG CAPSULE PO SCH ×3 (09:03→20:27)
[2016-07-14] MEDS: [UNRECOGNIZED DRUG - OTHER] TOPICAL SCH (09:04)
[2016-07-14] MEDS: TESTOSTERONE TOPICAL SCH (09:04)
[2016-07-14] MEDS: LIDOCAINE PATCH TOPICAL SCH ×2 (09:05→20:33)
[2016-07-14] MEDS: IPRATROPIUM/ALBUTEROL 3 ML AMPUL.NEB NEB SCH ×4 (09:09→20:40)
[2016-07-14] MEDS: VANCOMYCIN 1,000 MG in 0.9 % SODIUM CHLORIDE 250 ML IV SCH (09:56)
[2016-07-14] MEDS: FORMOTEROL INH SCH ×2 (09:56→22:37)
[2016-07-14] MEDS: BUDESONIDE INH SCH ×2 (09:56→22:37)
[2016-07-14] MEDS: ENOXAPARIN 120 MG/0.8 ML SYRINGE SQ SCH ×2 (10:14→20:27)
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
[2016-07-14] MEDS ORDERED: WARFARIN 3 MG TABLET PO ONE (14:00)
--- NOTE | 2016-07-14 19:21 | Surgical Pathology Report ---
HISTOLOGY SPECIMEN MICROSCOPIC DIAGNOSIS SOFT TISSUE, SACRAL WOUND BED, BIOPSY: -- PORTIONS OF ULCER BED WITH DENSE ACUTE/CHRONIC INFLAMMATION, HEMORRHAGE, FIBROSIS, NECROSIS AND GRANULATION TISSUE. -- NO MALIGNANCY IDENTIFIED. (ACP:sln) CLINICAL HISTORY Sacral pressure sore. GROSS DESCRIPTION Received in formalin, labeled sacral wound bed, is a 2.8 x 1.0 by up to 1.0 cm pink-diaz soft tissue fragment. No skin surface is identified. The margin is inked black. Geothermal Operating Engineer sections submitted - one cassette. (STM:djf) Electronically Signed by: Noe Good M.D.
[2016-07-15] MEDS: oxyCODONE HCL 5 MG TABLET PO PRN ×5 (04:27→22:38)
[2016-07-15] MEDS: LORazepam 0.5 MG TABLET PO PRN ×2 (05:04→18:30)
[2016-07-15 05:25] LABS: Basophils # (Auto) 0.1 K/mcL (0.0-0.3); Basophils % (Auto) 0.6 % (0.0-2.0); Eosinophils % (Auto) 6.2 % (0.0-7.0); Lymphocytes # (Auto) 4.2 K/mcL (1.5-4.8); Lymphocytes % (Auto) 26.3 % (15.5-49.0); Mean Cell Volume 100.5 fL (80.0-100.0); Mean Corpuscular HGB Conc 32.1 g/dL (31.0-36.0); Mean Corpuscular Hemoglobin 32.3 pg (26.0-34.0); Monocytes % (Auto) 5.9 % (1.0-9.0); Platelet Count 418 K/mcL (140-440); RBC 4.19 M/mcL (4.50-5.90); Red Cell Distribution Width 15.3 % (11.5-14.5)
[2016-07-15] MEDS: IMIPENEM/CILASTATIN SODIUM 1,000 MG in 0.9 % SODIUM CHLORIDE 250 ML IV SCH ×3 (05:37→22:26)
[2016-07-15] MEDS: 0.9 % SODIUM CHLORIDE 10 ML SYRINGE IV SCH ×3 (05:40→21:13)
[2016-07-15 05:41] LABS: ALT/SGPT 25 U/l (0-40); Albumin 3.2 gm/dL (3.2-5.2); Alkaline Phosphatase 101 U/L (39-117); Bilirubin,Direct < 0.2 mg/dL (0.0-0.3); Blood Urea Nitrogen 19 mg/dl (8-23); Gamma Glutamyl Transpeptidase 74 U/L (8-61); Magnesium 2.1 mg/dL (1.6-2.5); Phosphorous 2.8 mg/dL (2.7-4.5); Uric Acid 6.8 mg/dL (2.5-8.0)
[2016-07-15] MEDS: NEUTRA PHOS 1 PACKET PO SCH ×2 (08:31→21:13)
[2016-07-15] MEDS: FUROSEMIDE 40 MG TABLET PO SCH ×2 (08:33→16:01)
[2016-07-15] MEDS: DILTIAZEM 120 MG CAP.XL.24H PO SCH (08:33)
[2016-07-15] MEDS: ATORVASTATIN 20 MG TABLET PO SCH (08:33)
[2016-07-15] MEDS: TOLTERODINE 2 MG CAP.XL.24H PO SCH (08:33)
[2016-07-15] MEDS: POTASSIUM CHLORIDE 20 MEQ TABLET PO SCH (08:34)
[2016-07-15] MEDS: GABAPENTIN 400 MG CAPSULE PO SCH ×3 (08:34→21:13)
[2016-07-15] MEDS: oxyCODONE 20 MG TAB.ER.12H PO SCH ×2 (08:34→21:12)
[2016-07-15] MEDS: VITAMIN D3 1,000 UNIT TABLET PO SCH (08:34)
[2016-07-15] MEDS: AMIODARONE HCL 200 MG TABLET PO SCH (08:34)
[2016-07-15] MEDS: TESTOSTERONE TOPICAL SCH (08:38)
[2016-07-15] MEDS: [UNRECOGNIZED DRUG - OTHER] TOPICAL SCH (08:38)
[2016-07-15] MEDS: IPRATROPIUM/ALBUTEROL 3 ML AMPUL.NEB NEB SCH ×4 (08:54→20:58)
[2016-07-15] MEDS: FORMOTEROL INH SCH ×2 (08:54→21:10)
[2016-07-15] MEDS: BUDESONIDE INH SCH ×2 (08:54→21:10)
[2016-07-15] MEDS: metroNIDAZOLE 500 MG/100 ML BAG IV SCH ×3 (09:00→21:11)
[2016-07-15] MEDS: ENOXAPARIN 120 MG/0.8 ML SYRINGE SQ SCH ×2 (09:00→21:11)
[2016-07-15] MEDS: LIDOCAINE PATCH TOPICAL SCH ×2 (09:00→21:12)
[2016-07-15] MEDS: VANCOMYCIN 1,000 MG in 0.9 % SODIUM CHLORIDE 250 ML IV SCH (10:36)
[2016-07-15] MEDS ORDERED: FLEETS ADULT ENEMA PR PRN (10:51)
[2016-07-15] MEDS ORDERED: BISACODYL 10 MG SUPP.RECT PR PRN (10:51)
--- NOTE | 2016-07-15 12:04 | General Surgery Progress Note ---
Subjective Narrative: Note initiated : 07/15/16 at 12:01 pm Service Date, if different from initiated Date: [] Patient: Jesus Amezquita 61 y/o M admitted on 07/07/16 for Sacral Decubitus Ulcer /Infected Wound. the patient is done well. At this timehe is primarily a disposition problem. [facility]. He has no other complaints. His wound was not evaluated today since it is not time for wound VAC change. ] Objective Temp Pulse Resp BP Pulse Ox 98.2 F 56 L 12 104/64 98 07/15/16 07:45 07/15/16 09:10 07/15/16 09:10 07/15/16 07:45 07/15/16 09:09 - Additional Data Intake & Output - Last 24 hours: Intake & Output 07/13/16 07/14/16 07/15/16 07/16/16 05:59 05:59 05:59 05:59 Intake Total 2310 / 2310 3860 / 3860 2590 / 2590 Output Total 2975 / 2975 4350 / 4350 4175 / 4175 Balance -665 / -665 -490 / -490 -1585 / -1585 Weight 249 lb - Labs 07/15/16 03:59 07/15/16 03:59 Diabetes panel 07/15/16 Range/Units 03:59 Sodium 140 (133-145) mmol/L Potassium 3.5 (3.3-5.1) mmol/L Chloride 99 (96-108) mmol/L Carbon Dioxide 30 (22-30) mmol/L BUN 19 (8-23) mg/dl Creatinine 0.5 L (0.7-1.2) mg/dl Glucose 96 (70-105) mg/dL Calcium 8.8 (8.6-10.4) mg/dl AST 55 H (0-37) U/l ALT 25 (0-40) U/l Alkaline Phosphatase 101 (39-117) U/L Total Protein 6.5 (5.9-8.4) gm/dL Albumin 3.2 (3.2-5.2) gm/dL Triglycerides 128 (<150) mg/dl Calcium panel 07/15/16 Range/Units 03:59 Calcium 8.8 (8.6-10.4) mg/dl Phosphorus 2.8 (2.7-4.5) mg/dL Albumin 3.2 (3.2-5.2) gm/dL Pituitary panel 07/15/16 Range/Units 03:59 Sodium 140 (133-145) mmol/L Potassium 3.5 (3.3-5.1) mmol/L Chloride 99 (96-108) mmol/L Carbon Dioxide 30 (22-30) mmol/L BUN 19 (8-23) mg/dl Creatinine 0.5 L (0.7-1.2) mg/dl Glucose 96 (70-105) mg/dL Calcium 8.8 (8.6-10.4) mg/dl Adrenal panel 07/15/16 Range/Units 03:59 Sodium 140 (133-145) mmol/L Potassium 3.5 (3.3-5.1) mmol/L Chloride 99 (96-108) mmol/L Carbon Dioxide 30 (22-30) mmol/L BUN 19 (8-23) mg/dl Creatinine 0.5 L (0.7-1.2) mg/dl Glucose 96 (70-105) mg/dL Calcium 8.8 (8.6-10.4) mg/dl Total Bilirubin 0.3 (0.0-1.0) mg/dL AST 55 H (0-37) U/l ALT 25 (0-40) U/l Alkaline Phosphatase 101 (39-117) U/L Total Protein 6.5 (5.9-8.4) gm/dL Albumin 3.2 (3.2-5.2) gm/dL Medical - PN: A/P - Time Spent With Patient Total time spent is greater than 50% in coordination of care (as documented) at patient's floor/unit and/or counseling patient: (1) Sacral decubitus ulcer Status: Acute Assessment and plan: we'll wait for long-term care disposition. Current Visit: Yes (2) Benign prostatic hyperplasia with urinary obstruction Status: Chronic Current Visit: No (3) COPD (chronic obstructive pulmonary disease) Status: Chronic Current Visit: No (4) Neurogenic bladder Status: Chronic Current Visit: No
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
[2016-07-15] MEDS ORDERED: WARFARIN 3 MG TABLET PO ONE (14:00)
[2016-07-15] MEDS: DOCUSATE SODIUM 100 MG CAPSULE PO SCH (21:12)
[2016-07-16] MEDS: oxyCODONE HCL 5 MG TABLET PO PRN ×2 (03:45→12:00)
[2016-07-16] MEDS: metroNIDAZOLE 500 MG/100 ML BAG IV SCH (05:06)
[2016-07-16] MEDS: 0.9 % SODIUM CHLORIDE 10 ML SYRINGE IV SCH (05:12)
[2016-07-16 05:55] LABS: Basophils # (Auto) 0.1 K/mcL (0.0-0.3); Basophils % (Auto) 0.6 % (0.0-2.0); Eosinophils % (Auto) 6.9 % (0.0-7.0); Granulocytes % (Auto) 61.5 % (38.0-78.0); Lymphocytes # (Auto) 3.9 K/mcL (1.5-4.8); Lymphocytes % (Auto) 25.9 % (15.5-49.0); Mean Cell Volume 100.3 fL (80.0-100.0); Mean Corpuscular HGB Conc 32.1 g/dL (31.0-36.0); Mean Corpuscular Hemoglobin 32.2 pg (26.0-34.0); Monocytes # (Auto) 0.8 K/mcL (0.1-0.9); Monocytes % (Auto) 5.1 % (1.0-9.0); Platelet Count 420 K/mcL (140-440); RBC 4.18 M/mcL (4.50-5.90); Red Cell Distribution Width 15.7 % (11.5-14.5)
[2016-07-16] MEDS: IMIPENEM/CILASTATIN SODIUM 1,000 MG in 0.9 % SODIUM CHLORIDE 250 ML IV SCH (06:35)
[2016-07-16] MEDS: VITAMIN D3 1,000 UNIT TABLET PO SCH (08:27)
[2016-07-16] MEDS: GABAPENTIN 400 MG CAPSULE PO SCH (08:27)
[2016-07-16] MEDS: ATORVASTATIN 20 MG TABLET PO SCH (08:27)
[2016-07-16] MEDS: DOCUSATE SODIUM 100 MG CAPSULE PO SCH (08:27)
[2016-07-16] MEDS: FUROSEMIDE 40 MG TABLET PO SCH (08:28)
[2016-07-16] MEDS: DILTIAZEM 120 MG CAP.XL.24H PO SCH (08:28)
[2016-07-16] MEDS: oxyCODONE 20 MG TAB.ER.12H PO SCH (08:29)
[2016-07-16] MEDS: POTASSIUM CHLORIDE 20 MEQ TABLET PO SCH (08:29)
[2016-07-16] MEDS: AMIODARONE HCL 200 MG TABLET PO SCH (08:29)
[2016-07-16] MEDS: NEUTRA PHOS 1 PACKET PO SCH (08:30)
[2016-07-16] MEDS: ENOXAPARIN 120 MG/0.8 ML SYRINGE SQ SCH (08:46)
[2016-07-16] MEDS: TOLTERODINE 2 MG CAP.XL.24H PO SCH (08:47)
[2016-07-16] MEDS: IPRATROPIUM/ALBUTEROL 3 ML AMPUL.NEB NEB SCH (08:52)
[2016-07-16] MEDS: FORMOTEROL INH SCH (09:07)
[2016-07-16] MEDS: BUDESONIDE INH SCH (09:07)
[2016-07-16] MEDS: VANCOMYCIN 1,000 MG in 0.9 % SODIUM CHLORIDE 250 ML IV SCH (09:57)
[2016-07-16] MEDS: TESTOSTERONE TOPICAL SCH (09:59)
[2016-07-16] MEDS: [UNRECOGNIZED DRUG - OTHER] TOPICAL SCH (09:59)
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
[2016-07-16] MEDS: LORazepam 0.5 MG TABLET PO PRN (12:07)
[2016-07-16] MEDS ORDERED: WARFARIN 7.5 MG TABLET PO ONE (14:00)
== END 2016-07-16 12:35 | DRG 853 ==
LOC: ED 15:12 → SUATTDRO 19:57 → MEDSUR 19:57
PROVIDERS: ADMIT Internal Medicine; ATTEND Internal Medicine